=== PATIENT | female | born 1990 | race Caucasian/White ===

== ENCOUNTER → 2016-04-24 | Outpatient (CLI) | payer BC, OTHER ==
--- NOTE | 2016-04-24 18:31 | DI ---
DOPPLER ULTRASOUND OF THE LEFT UPPER EXTREMITY,04/24/2016 11:47 AM: Clinical History: Left arm pain. Previous Exam: None at this facility. Technique: 2D real-time imaging is supplemented with color Doppler ultrasound from the proximal forea rm to the subclavian vein. Compression maneuvers and augmentation with the "sniff" technique and the Valsalva maneuver are performed. The deep venous system from the proximal forearm to the subclavian vein is normal. The cephalic vein is also normal. Reading: Normal venous Doppler ultrasound of the left upper extremity.
== END ==
LOC: US 11:40
PROVIDERS: ATTEND Surgery
DX: M79.602 Pain in left arm (principal)
CPT/HCPCS: 93971

== ENCOUNTER → 2016-05-08 | Outpatient (CLI) | payer BC, OTHER ==
--- NOTE | 2016-05-08 15:31 | DI ---
XR SINUS PARANASAL CPT MIN 3VW,05/08/2016 2:11 PM: Clinical History: Sinusitis. Previous Exam: None at this facility. Findings: 4 views of the paranasal sinuses are obtained, and demonstrate normal paranasal sinuses. There is no filling defect and no bony erosion. There is no metallic foreign body. Impression: Normal paranasal sinuses.
== END ==
LOC: MOB RAD 14:13
PROVIDERS: ATTEND Physician Assistant
DX: J32.9 Chronic sinusitis, unspecified (principal)
CPT/HCPCS: 70220

== ENCOUNTER → 2016-05-13 | Outpatient (CLI) | payer BC, OTHER ==
[2016-05-13 08:42] LABS: BLOOD UREA NITROGEN 17 mg/dL (7-22); CALCIUM 9.9 mg/dL (8.7-10.7); CHLORIDE 103 meq/L (98-112); EST GLOMERULAR FILTRATION > 60 (>60 ml/min/1.73m(2)); GLUCOSE 86 mg/dL (78-110); POTASSIUM 4.6 meq/L (3.8-5.2); SODIUM 141 meq/L (135-145)
== END ==
LOC: LAB 07:41
PROVIDERS: ATTEND Internal Medicine Nephrology
DX: Z94.83 Pancreas transplant status (principal); Z94.0 Kidney transplant status; Z79.899 Other long term (current) drug therapy
CPT/HCPCS: 36415; 80048; 80197

== ENCOUNTER → 2016-05-31 | Outpatient (CLI) | payer BC, OTHER ==
[2016-05-31 07:51] LABS: BUN/CREATININE RATIO 14.54 (6-20); CALCIUM 9.3 mg/dL (8.7-10.7); CREATININE 1.1 mg/dL (0.50-1.20); POTASSIUM 4.1 meq/L (3.8-5.2)
== END ==
LOC: LAB 07:27
PROVIDERS: ATTEND Internal Medicine Nephrology
DX: Z94.0 Kidney transplant status (principal); Z94.83 Pancreas transplant status; Z79.899 Other long term (current) drug therapy
CPT/HCPCS: 36415; 80048; 80197

== ENCOUNTER 2016-06-27 10:16 | Emergency (ER) | payer BC, OTHER ==
[2016-06-27 10:49] VITALS: RESP 14
--- NOTE | 2016-06-27 11:05 | PDOC ---
Gen Adult / Medical Screen HPI - General Chief Complaint: General Medical Stated Complaint: DIZZY/NAUSEA/SHAKING Date Seen by Provider: 06/27/16 Time Seen by Provider: 11:00 Source: POSITIVE: Patient Exam Limitations: POSITIVE: No limitations Nurse's Notes Reviewed & Considered: Yes - History of Present Illness Initial Comments: This is a 26-year-old female who presents to the emergency department with a history of increasing dizziness, nausea, and shakiness which started last night , and has become worse today. She describes the dizziness as lightheadedness, not vertigo. She does have some nasal congestion, runny nose, sore throat, and right ear plugged feeling, all which started Friday. She has noted decreased fluid intake due to the sore throat. No documented fevers. She does feel cold, but this is relatively normal for her. She also notes some right upper quadrant pain which started yesterday - Patient Home Medications Home Medications: Home Medications Aspirin [Aspir-Low] 81 mg PO DAILY 10/25/13 Biotin [Meribin] 1 tab PO QD #30 cap 05/03/15 Diazepam 1 tab PO BID PRN #40 tab 05/03/15 Midodrine HCl 1 tab PO TID #90 tab 05/03/15 Multivitamin with Minerals [Hair, Skin and Nails] 1 tab PO QD #30 tab 05/03/15 Pantoprazole Sodium 1 tab PO QD #30 tab 05/03/15 Rosuvastatin Calcium [Crestor] 1 tab PO QD #30 tab 05/03/15 Prednisone 2 tab PO QD #60 tab 05/09/15 Ondansetron [Zofran Odt] 4 mg PO TID #10 tab 11/01/15 Promethazine HCl 1 supp RECTAL Q6H PRN #12 supp 11/02/15 Butalb/Acetaminophen/Caffeine [Fioricet 50-325-40 mg Tablet] 1 each PO Q6H PRN 11/04/15 Pantoprazole Sodium [Protonix] 40 mg PO BID #30 tablet. 11/04/15 Prochlorperazine Maleate [Compazine] 10 mg PO Q6H PRN #15 tablet 11/04/15 Docusate Sodium [Colace] 100 mg PO BID PRN #30 capsule 11/09/15 Isotretinoin [Zenatane] 40 mg PO BID cap 11/14/15 Valacyclovir HCl [Valacyclovir] 1,000 mg PO BID #14 tab 12/25/15 Trazodone HCl 1 tab PO QHS #30 tab 01/02/16 Metoclopramide HCl 2 tab PO BID #120 tab 04/17/16 Mycophenolate Sodium [Myfortic] 1 - 2 tab PO BID #120 tab 04/29/16 Tacrolimus Anhydrous [Tacrolimus] 1 - 4 cap PO BID #240 cap 04/29/16 Sertraline HCl 1 tab PO QD #30 tab 05/08/16 Sulfamethoxazole/Trimethoprim [Bactrim Ds Tablet] 1 tab PO BID #20 tab 05/27/16 - Patient Allergies Allergies/Adverse Reactions: Allergies Allergy/AdvReac Type Severity Reaction Status Date / Time Jpwllfi-Xkd-Ptl Reductase AdvReac Mild SWELLING Unverified 06/18/16 10:02 Inhibitor ibuprofen AdvReac HAS RENAL Unverified 06/18/16 10:02 FAILURE Past Medical History - heen HEENT History: Other (please comment) Additional HEENT History: wears glasses Cardiovascular History: Hypertension, CHF, Previous AR, DVTs, Hyperlipidemia, Other (please comment) Additional Cardiovasular History: HEART CATH X 2 WITH STENTS X2 Respiratory History: Denies History Gastrointestinal History: Other (please comment) Additional Gastrointestinal History: APPY Genitourinary History: Renal Failure Additional Genitourinary History: With in 2012; kidney transplant Endocrine History: Type 1 Diabetes Additional Endocrine History: hx of IDDM, no longer diabetic since transplant. 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 Psychiatric History: Anxiety Disorders, Depression Additional Psychiatric History: Takes Zoloft for anxiety History of Sexually Transmitted Diseases: No Cancer History: Denies History In Past Year Been Physically Harmed or Verbally Threatened: No History of MDRO: No History of Other Communicable Diseases: No Tobacco Use: Never Smoker Alcohol Use: None Substance Use Type: None Previous Surgical History: Yes Type / Date of Surgery: C SECTION X2, APPY, TUBAL LIG, cataractsHEART CATHS WITH STENTS X 2. kidney/pancreas transplant 03/14/2015 Anesthesia Reactions: No Malignant Hyperthermia: No Significant Family History: Heart disease, Diabetes, Hypertension Past Medical History Reviewed: Reviewed - No Changes ROS - Limitations ROS Limitations: No Limitations Constitution: DENIES: Chills, Fever Cardiovascular: DENIES: Chest Pain Respiratory: REPORTS: Cough Non Productive. DENIES: Hurts To Breathe, Shortness Of Breath Neurological: REPORTS: Headache, Dizziness Gastrointestinal: REPORTS: Abdominal Pain (Right upper quadrant). DENIES: Nausea, Vomitting Endocrine: REPORTS: Denies Symptoms Musculoskeletal: DENIES: Lower Extremity Swelling, Muscle Aches Genitourinary: DENIES: Dysuria, Flank Pain, Hematuria Eyes: DENIES: Vision Changes ENT: REPORTS: Hearing Loss, Congestion, Nasal Drainage, Sore Throat, Trouble Swallowing Skin: REPORTS: Denies Skin Symptoms Gen Adult/Medical Screen Exam - General Appearance General Appearance: POSITIVE: Alert, Cooperative, No Acute Distress - HEENT HEENT: POSITIVE: Other (Wears glasses). NEGATIVE: Scleral Icterus - Respiratory Respiratory: POSITIVE: No Respiratory Distress, Breath Sounds Normal. NEGATIVE : Wheezes, Rales, Rhonchi - Cardiovascular Cardiovascular: POSITIVE: Regular Rate & Rhythm, No Murmur, No Gallop - Abdomen Additional Abdominal Details: Abdomen soft, nondistended, she has mild to moderate right upper quadrant tenderness to palpation without rebound or guarding. She has active bowel sounds all 4 quadrants, no hepatosplenomegaly. No CVA tender to percussion. - Back Back: NEGATIVE: CVA Tenderness - Neurological / Psychological Mental Status: POSITIVE: Mood Normal, Affect Normal Orientation: POSITIVE: Oriented x 3 - Skin Skin: POSITIVE: Warm, Dry, No Rash Gen Adlt/Medical Scrn Progress - Results Reviewed by me Xrays/CTs/US Reviewed by me: Yes Discussed with Radiologist: Yes Lab Results Reviewed: Yes Lab Results:: Laboratory Results 06/27/16 Range/Units 11:30 WBC 7.60 (4.8-10.8) 10^3/uL RBC 5.47 H (4.20-5.40) 10^6/uL Hgb 15.0 (12.0-16.0) g/dL Hct 47.9 H (37.0-47.0) % MCV 87.6 (81-99) FL MCH 27.4 (27-31) PG MCHC 31.3 L (33-37) g/dL RDW Std Deviation 47.1 (39-50) fL RDW Coeff of Martha 14.8 H (11.5-14.5) % Plt Count 281 (140-350) 10*3/uL MPV 11.1 (7.4-12.2) FL Immature Gran % (Auto) 0.1 (0-5) % Neut % (Auto) 86.2 H (50-80) % Lymph % (Auto) 6.8 L (10-50) % [place] % (Auto) 5.7 (5-15) % Eos % (Auto) 0.9 (0-8) % Baso % (Auto) 0.3 (0-1) % Immature Gran # (Auto) 0.01 10*3/UL Neut # (Auto) 6.55 10*3/UL Lymph # (Auto) 0.52 10*3/uL [place] # (Auto) 0.43 (0.3-0.8) 10*3/UL Eos # (Auto) 0.07 10*3/UL Baso # (Auto) 0.02 10*3/UL WBC Morphology Comment Normal morphology (NORM) Plt Morphology Comment See comments (NORM) RBC Morph Comment See comments (NORM) Sodium 141 (135-145) meq/L Potassium 4.1 (3.8-5.2) meq/L Chloride 105 (98-112) meq/L Carbon Dioxide 24 (23-33) meq/L Anion Gap 12 (5-20) BUN 14 (7-22) mg/dL Creatinine 0.9 (0.50-1.20) mg/dL Estimated GFR > 60 (>60 ml/min/1.73m(2)) BUN/Creatinine Ratio 15.55 (6-20) Glucose 124 H (78-110) mg/dL Calculated Osmolality 293.0 H (267-292) mOsm/kg Calcium 9.4 (8.7-10.7) mg/dL Total Bilirubin 0.5 (0.3-1.2) mg/dL AST 42 H (8-39) IU/L ALT 49 (9-52) IU/L Alkaline Phosphatase 76 (38-126) IU/L Total Protein 7.7 (6.1-8.0) g/dL Albumin 4.2 (3.5-4.8) g/dL Globulin 3.5 (2.50-4.10) g/dL Albumin/Globulin Ratio 1.20 L (1.3-2.0) mg/g Lipase 274 (23-300) IU/L - Patient's Progress Pain Medication Addressed: POSITIVE: Yes Re-Examine Time: 12:40 (Feeling a little better.) Re-Examine Time:: 13:43 (Much better) Status: POSITIVE: Improved MDM / ED Course: Emergency room course: After initial evaluation, an IV was started, labs were drawn, IV fluids were given, and pain medications were given as well. After the lab results and ultrasound results reviewed, they're discussed with the patient. She was seen feeling somewhat better after the IV fluids, but still in some pain. She is given a Williams by mouth as well as second dose of fentanyl and is now feeling much better and is comfortable going home. She is follow-up with her primary care provider the next 2-3 days if the pain is not starting to improve. Return to the department if pain gets worse or symptoms change, or fever develops. - Consult Counseled: POSITIVE: Patient, RE: Lab Results, RE: Radiology Results, RE: Need for F/U Patient Care Time - Estimated PCT Patient Care Time (In Minutes): 30 Vital Signs - Recent Vital Signs Vital Signs: Vital Signs (Last 8 hours) Temp Pulse Resp BP Pulse Ox 06/27/16 10:39 97.5 F 90 14 103/69 96 Discharge Clinical Impression: Dizziness, Abdominal pain Discharge Disposition: Discharged to Home Condition: Good Patient Instructions Given at Discharge: Dizziness (ED), Acute Abdominal Pain ( ED)
[2016-06-27] MEDS ORDERED: NORMAL SALINE 10 ML SYRINGE FLUSH IVP PRN (11:08)
[2016-06-27] MEDS ORDERED: Sodium Chloride 0.9% 1,000 ML PRIMARY IV ONE (11:09)
[2016-06-27] MEDS ORDERED: ONDANSETRON 4 MG/2 ML VIAL IVP ONE (11:10)
[2016-06-27] MEDS ORDERED: fentaNYL Inj 100 MCG/2 ML VIAL IVP ONE (11:10)
[2016-06-27 11:33] LABS: BASOPHILS # (AUTO) 0.02 10*3/UL; BASOPHILS % (AUTO) 0.3 % (0-1); EOSINOPHILS # (AUTO) 0.07 10*3/UL; EOSINOPHILS % (AUTO) 0.9 % (0-8); HEMATOCRIT 47.9 % (37.0-47.0); LYMPHOCYTES # (AUTO) 0.52 10*3/uL; MEAN CORPUSCULAR HEMOGLOBIN 27.4 PG (27-31); MEAN CORPUSCULAR HGB CONC 31.3 g/dL (33-37); MEAN CORPUSCULAR VOLUME 87.6 FL (81-99); MEAN PLATELET VOLUME 11.1 FL (7.4-12.2); MONOCYTES # (AUTO) 0.43 10*3/UL (0.3-0.8); MONOCYTES % (AUTO) 5.7 % (5-15); NEUTROPHILS # (AUTO) 6.55 10*3/UL; NEUTROPHILS % (AUTO) 86.2 % (50-80); RED BLOOD COUNT 5.47 10^6/uL (4.20-5.40)
[2016-06-27 11:48] LABS: PLATELET MORPHOLOGY COMMENT SEE COMMENTS (NORM); WBC MORPHOLOGY COMMENT NORMAL MORPHOLOGY (NORM)
[2016-06-27 11:49] LABS: RBC MORPHOLOGY COMMENT SEE COMMENTS (NORM)
[2016-06-27 11:51] LABS: BLOOD UREA NITROGEN 14 mg/dL (7-22); BUN/CREATININE RATIO 15.55 (6-20); CALCIUM 9.4 mg/dL (8.7-10.7); EST GLOMERULAR FILTRATION > 60 (>60 ml/min/1.73m(2)); LIPASE 274 IU/L (23-300); SERUM ALBUMIN 4.2 g/dL (3.5-4.8)
--- NOTE | 2016-06-27 12:49 | DI ---
GALLBLADDER AND LIVER ULTRASOUND, 06/27/2016 11:11 AM: Clinical History: Right upper quadrant pain. Previous Exam: None at this facility. Technique: Scans are performed through the right upper quadrant in multiple projections. The patient was rolled from side to side and the gallbladder was balloted with the probe to facilitate visualizat ion of small gallstones. The gallbladder is well distended and has a normal wall thickness. There are no gallstones. The commo n bile duct measures 5 mm. Only a small portion of the neck of the pancreas is visualized and no obvi ous abnormality is seen. The liver, IVC, and aorta are normal. The right kidney is small but grossly normal. This patient has a renal transplant in the limited views of the transplant kidney in the righ t iliac fossa shows a normal perfusion without evidence of hydronephrosis. Readin. Normal gallbladder ultrasound. 2. The liver, aorta, and IVC are normal. 3. The [place] right kidney is small. The transplanted kidney in the right iliac fossa appears normal . 4. Only a small portion of the pancreas in the area of the neck could be visualized and that portion is normal.
[2016-06-27] MEDS ORDERED: HYDROcodone-APAP 5 MG -325 MG TABLET PO ONE (12:58)
[2016-06-27 16:46] VITALS: TEMP 97.2
== END 2016-06-27 13:56 | disposition home or self-care (01) ==
LOC: ER 10:16
DX: R42 Dizziness and giddiness (principal); R10.11 Right upper quadrant pain; R11.0 Nausea; J02.9 Acute pharyngitis, unspecified
CPT/HCPCS: 76705; 80053; 83690; 85025; 96361; 96374; 96375; 99283 ×2; J3010; J2405; J7030

== ENCOUNTER 2016-07-05 08:52 | Emergency (ER) | payer BC, OTHER ==
[2016-07-05] MEDS ORDERED: NORMAL SALINE 10 ML SYRINGE FLUSH IVP PRN (09:03)
[2016-07-05 09:09] VITALS: RESP 18; TEMP 96.2
[2016-07-05] MEDS: Sodium Chloride 0.9% 1,000 ML PRIMARY IV ONE (09:09)
--- NOTE | 2016-07-05 09:10 | PDOC ---
Syncope/Near-Syncope HPI - General Chief Complaint: Syncope / Near-Syncope Stated Complaint: dizzy, dehydration Date Seen by Provider: 07/05/16 Time Seen by Provider: 09:05 Source: POSITIVE: Patient Exam Limitations: POSITIVE: No limitations - History of Present Illness Initial Comments: Jennifer Lobato is a 26-year-old woman coming in today for an episode of dizziness. She has a history of kidney transplant and follows with the nephrology service out of [place]. About half an hour prior to presentation today, she had an episode of lightheadedness. She took her blood pressure at home, and her systolic blood pressure was in the 80s. She never actually passed out. Her symptoms have improved by this point. She called the nephrology service and they recommended that she come in to the emergency department for IV fluids and evaluation. She was little bit nauseated at the time, but this has largely resolved. Currently, she has no chest pain or shortness of breath no vision changes, no abdominal pain and no headache. She has no fevers, and no cough, and has been feeling otherwise well until this morning. She has an appointment with the nephrology service later this month. She took one dose of midodrine this morning before coming in. - Patient Home Medications Home Medications: Home Medications Aspirin [Aspir-Low] 81 mg PO DAILY 10/25/13 Biotin [Meribin] 1 tab PO QD #30 cap 05/03/15 Multivitamin with Minerals [Hair, Skin and Nails] 1 tab PO QD #30 tab 05/03/15 Rosuvastatin Calcium [Crestor] 1 tab PO QD #30 tab 05/03/15 Prednisone 2 tab PO QD #60 tab 05/09/15 Ondansetron [Zofran Odt] 4 mg PO TID #10 tab 11/01/15 Butalb/Acetaminophen/Caffeine [Fioricet 50-325-40 mg Tablet] 1 each PO Q6H PRN 11/04/15 Pantoprazole Sodium [Protonix] 40 mg PO BID #30 tablet. 11/04/15 Trazodone HCl 1 tab PO QHS #30 tab 01/02/16 Metoclopramide HCl 2 tab PO BID #120 tab 04/17/16 Mycophenolate Sodium [Myfortic] 1 - 2 tab PO BID #120 tab 04/29/16 Tacrolimus Anhydrous [Tacrolimus] 1 - 4 cap PO BID #240 cap 04/29/16 Sertraline HCl 1 tab PO QD #30 tab 05/08/16 Midodrine HCl 5 mg PO PRN PRN 07/05/16 Sodium Bicarbonate 1,300 mg PO BID 07/05/16 - Patient Allergies Allergies/Adverse Reactions: Allergies Allergy/AdvReac Type Severity Reaction Status Date / Time Lhjdlok-Dkd-Edl Reductase AdvReac Mild SWELLING Verified 07/05/16 08:58 Inhibitor ibuprofen AdvReac HAS RENAL Verified 07/05/16 08:58 FAILURE Past Medical History - heen HEENT History: Other (please comment) Additional HEENT History: wears glasses Cardiovascular History: Hypertension, CHF, Previous OR, DVTs, Hyperlipidemia, Other (please comment) Additional Cardiovasular History: HEART CATH X 2 WITH STENTS X2 Respiratory History: Denies History Gastrointestinal History: Other (please comment) Additional Gastrointestinal History: APPY Genitourinary History: Renal Failure Additional Genitourinary History: With in 2012; kidney transplant Endocrine History: Type 1 Diabetes Additional Endocrine History: hx of IDDM, no longer diabetic since transplant. 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 Psychiatric History: Anxiety Disorders, Depression Additional Psychiatric History: Takes Zoloft for anxiety History of Sexually Transmitted Diseases: No Cancer History: Denies History History of MDRO: No History of Other Communicable Diseases: No Alcohol Use: None Substance Use Type: None Previous Surgical History: Yes Type / Date of Surgery: C SECTION X2, APPY, TUBAL LIG, cataractsHEART CATHS WITH STENTS X 2. kidney/pancreas transplant 03/14/2015 Anesthesia Reactions: No Malignant Hyperthermia: No Significant Family History: Heart disease, Diabetes, Hypertension Past Medical History Reviewed: Reviewed - No Changes ROS - Limitations ROS Limitations: No Limitations Constitution: REPORTS: Denies Symptoms Cardiovascular: REPORTS: Denies Cardiac Symptoms Respiratory: REPORTS: Denies Resp Symptoms Neurological: REPORTS: Denies Neuro Symptoms Gastrointestinal: REPORTS: Denies GI Symptoms Endocrine: REPORTS: Denies Symptoms Musculoskeletal: REPORTS: Denies MS Symptoms Genitourinary: REPORTS: Denies Symptoms Eyes: REPORTS: Denies Symptoms ENT: REPORTS: Denies Symptoms Skin: REPORTS: Denies Skin Symptoms Lympathic: REPORTS: Denies Lympathic Symptoms Immunologic: POSITIVE: Denies Symptoms Psychiatric: POSITIVE: Denies Psych Symptoms Syncope / Near-Syncope Exam - General Appearance General Appearance: POSITIVE: Alert, Cooperative, No Acute Distress - HEENT HEENT: POSITIVE: Head Inspection Nml, Eyes Inspection Nml, Ears Inspection Nml, Nose Inspection Nml, PERRL, EOMI - Pupil Size Pupil Size: 2 mm: Bilateral, 3 mm: Bilateral - Neck / Back Neck/Back: POSITIVE: Supple - Respiratory Respiratory: POSITIVE: No Respiratoy Distress, Breath Sounds Normal - Cardiovascular Cardiovascular: POSITIVE: Regular Rate and Rhythm, Heart Sounds Normal, Equal Pulses Peripheral Pulses: Radial (R): 2+, Radial (L): 2+ - Abdomen Abdomen: Denies Tenderness: (All Quadrants), No Distention: (All Quadrants) - Skin Skin: POSITIVE: Intact, Warm - Extremities Extremity: Normal ROM: (All Extremities), Normal Inspection: (All Extremities) - Neuro / Psych Higher Functions: POSITIVE: Oriented to Person, Oriented to Place, Oriented to Time, Normal Speech, Normal Cognition, Appropriate Mood, Appropriate Affect Cranial Nerves: POSITIVE: Normal As Tested Cerebellar: POSITIVE: Normal As Tested Sensorimotor: POSITIVE: No Motor Deficits, No Sensory Deficits Syncope/Near-Syncope Progress - Results Reviewed by me Lab Results:: Laboratory Results 07/05/16 Range/Units 09:06 WBC 5.89 (4.8-10.8) 10^3/uL RBC 5.39 (4.20-5.40) 10^6/uL Hgb 14.6 (12.0-16.0) g/dL Hct 46.8 (37.0-47.0) % MCV 86.8 (81-99) FL MCH 27.1 (27-31) PG MCHC 31.2 L (33-37) g/dL RDW Std Deviation 45.1 (39-50) fL RDW Coeff of Martha 14.2 (11.5-14.5) % Plt Count 295 (140-350) 10*3/uL MPV 10.9 (7.4-12.2) FL Immature Gran % (Auto) 0.3 (0-5) % Neut % (Auto) 67.3 (50-80) % Lymph % (Auto) 20.2 (10-50) % [place] % (Auto) 10.0 (5-15) % Eos % (Auto) 1.9 (0-8) % Baso % (Auto) 0.3 (0-1) % Immature Gran # (Auto) 0.02 10*3/UL Neut # (Auto) 3.96 10*3/UL Lymph # (Auto) 1.19 10*3/uL [place] # (Auto) 0.59 (0.3-0.8) 10*3/UL Eos # (Auto) 0.11 10*3/UL Baso # (Auto) 0.02 10*3/UL WBC Morphology Comment Normal morphology (NORM) Plt Morphology Comment Normal morphology (NORM) RBC Morph Comment Normal morphology (NORM) Sodium 138 (135-145) meq/L Potassium 4.3 (3.8-5.2) meq/L Chloride 104 (98-112) meq/L Carbon Dioxide 24 (23-33) meq/L Anion Gap 10 (5-20) BUN 24 H (7-22) mg/dL Creatinine 1.0 (0.50-1.20) mg/dL Estimated GFR > 60 (>60 ml/min/1.73m(2)) BUN/Creatinine Ratio 24.00 H (6-20) Glucose 88 (78-110) mg/dL Calculated Osmolality 288.0 (267-292) mOsm/kg Calcium 9.5 (8.7-10.7) mg/dL Magnesium 1.6 (1.6-2.4) mg/dL Serum HCG, Qual Negative EKG Interpreted/Reviewed By Me:: Yes EKG Interpretation:: POSITIVE: Normal Sinus Rhythm, Normal Rate, Unchanged - Patient's Progress MDM / ED Course: Ananya is a very nice 26-year-old woman came in today with episode of acute dizziness and possible low blood pressure at home. We got orthostatic vital signs on her which were all normal. We observed her for a time here in the exam room and she did not develop any other concerning symptoms. We gave her 1 liter normal saline, and checked labs as above all of which were reassuring. I think she is stable to go home, I want her to keep her appointment with the nephrology clinic later this month. We give her return precautions and she verbalized understanding. Patient Care Time - Estimated PCT Patient Care Time (In Minutes): 25 Vital Signs - Recent Vital Signs Vital Signs: Vital Signs (Last 8 hours) Temp Pulse Pulse Pulse Pulse Resp BP 07/05/16 09:03 85 89 90 140/91 07/05/16 08:53 96.2 F L 85 18 BP BP Pulse Ox 07/05/16 09:03 125/84 120/88 07/05/16 08:53 95 - VS Reviewed Vital Signs Reviewed: Yes Discharge Clinical Impression: Near syncope Discharge Disposition: Discharged to Home Condition: Fair Patient Instructions Given at Discharge: Near Syncope (ED) Other: Keep your appointment with the nephrology clinic later this month.
--- NOTE | 2016-07-05 09:16 | EKG ---
[address] [place] [address] Measurements Intervals [place] Rate: 79 P: 17 NC: 162 QRS: -60 QRSD: 84 T: 3 QT: 378 QTc: 413 Interpretive Statements SINUS RHYTHM POSSIBLE LEFT ATRIAL ENLARGEMENT [-0.1mV P WAVE IN V1/V2] LOW QRS VOLTAGE IN PRECORDIAL LEADS [QRS DEFLECTION < 1.0 mV IN CHEST LEADS] POSSIBLE RIGHT VENTRICULAR CONDUCTION DELAY [RSR (QR) IN V1/V2] INFERIOR MYOCARDIAL INFARCTION [40+ ms Q WAVE AND/OR ST/T ABNORMALITY IN II/aVF], OF INDETERMINATE AGE ANTEROLATERAL MYOCARDIAL INFARCTION [40+ ms Q WAVE IN I/aVL/V3-V6], OF INDETERMINATE AGE Compared to ECG 07/16/2014 00:20:03 Low QRS voltage now present Myocardial infarct finding still present Electronically Signed On 07-05-16 09:59:01 MDT by Hugo Cisneros MD [email or web address]
[2016-07-05 09:18] LABS: BASOPHILS # (AUTO) 0.02 10*3/UL; BASOPHILS % (AUTO) 0.3 % (0-1); EOSINOPHILS # (AUTO) 0.11 10*3/UL; EOSINOPHILS % (AUTO) 1.9 % (0-8); HEMATOCRIT 46.8 % (37.0-47.0); HEMOGLOBIN 14.6 g/dL (12.0-16.0); LYMPHOCYTES # (AUTO) 1.19 10*3/uL; MEAN CORPUSCULAR HEMOGLOBIN 27.1 PG (27-31); MEAN CORPUSCULAR HGB CONC 31.2 g/dL (33-37); MEAN CORPUSCULAR VOLUME 86.8 FL (81-99); MEAN PLATELET VOLUME 10.9 FL (7.4-12.2); MONOCYTES # (AUTO) 0.59 10*3/UL (0.3-0.8); NEUTROPHILS # (AUTO) 3.96 10*3/UL; NEUTROPHILS % (AUTO) 67.3 % (50-80); RED BLOOD COUNT 5.39 10^6/uL (4.20-5.40)
[2016-07-05 09:27] LABS: BLOOD UREA NITROGEN 24 mg/dL (7-22); CALCIUM 9.5 mg/dL (8.7-10.7); EST GLOMERULAR FILTRATION > 60 (>60 ml/min/1.73m(2)); MAGNESIUM 1.6 mg/dL (1.6-2.4)
[2016-07-05 09:28] LABS: PLATELET MORPHOLOGY COMMENT NORMAL MORPHOLOGY (NORM); RBC MORPHOLOGY COMMENT NORMAL MORPHOLOGY (NORM); WBC MORPHOLOGY COMMENT NORMAL MORPHOLOGY (NORM)
== END 2016-07-05 10:15 | disposition home or self-care (01) ==
LOC: ER 08:52
DX: R55 Syncope and collapse (principal); R11.0 Nausea; R42 Dizziness and giddiness
CPT/HCPCS: 80048; 83735; 84443; 84703; 85025; 93005; 93010; 96360; 99283; J7030

== ENCOUNTER → 2016-07-15 | Outpatient (CLI) | payer BC, OTHER ==
[2016-07-15 08:31] LABS: HEMOGLOBIN 15.3 g/dL (12.0-16.0); MEAN CORPUSCULAR HEMOGLOBIN 26.7 PG (27-31); MEAN CORPUSCULAR HGB CONC 31.2 g/dL (33-37); MEAN CORPUSCULAR VOLUME 85.5 FL (81-99); MEAN PLATELET VOLUME 11.2 FL (7.4-12.2); RED BLOOD COUNT 5.73 10^6/uL (4.20-5.40)
[2016-07-15 09:45] LABS: BUN/CREATININE RATIO 15.45 (6-20); CALCIUM 9.7 mg/dL (8.7-10.7); PHOSPHORUS 3.9 mg/dl (2.4-4.3); SERUM ALBUMIN 4.4 g/dL (3.5-4.8)
== END ==
LOC: LAB 08:00
PROVIDERS: ATTEND Internal Medicine Nephrology
DX: Z94.0 Kidney transplant status (principal); Z94.83 Pancreas transplant status; Z79.899 Other long term (current) drug therapy
CPT/HCPCS: 36415; 80069; 80197; 85027

== ENCOUNTER → 2016-07-22 | Outpatient (CLI) | payer BC, OTHER ==
[2016-07-22 10:32] LABS: BASOPHILS # (AUTO) 0.05 10*3/UL; BASOPHILS % (AUTO) 0.6 % (0-1); EOSINOPHILS # (AUTO) 0.09 10*3/UL; EOSINOPHILS % (AUTO) 1.1 % (0-8); HEMATOCRIT 48.2 % (37.0-47.0); HEMOGLOBIN 15.4 g/dL (12.0-16.0); LYMPHOCYTES # (AUTO) 1.15 10*3/uL; MEAN CORPUSCULAR HEMOGLOBIN 27.1 PG (27-31); MEAN CORPUSCULAR VOLUME 84.9 FL (81-99); MONOCYTES # (AUTO) 0.83 10*3/UL (0.3-0.8); MONOCYTES % (AUTO) 10.3 % (5-15); NEUTROPHILS # (AUTO) 5.94 10*3/UL; NEUTROPHILS % (AUTO) 73.6 % (50-80); RED BLOOD COUNT 5.68 10^6/uL (4.20-5.40)
[2016-07-22 10:46] LABS: PLATELET MORPHOLOGY COMMENT NORMAL MORPHOLOGY (NORM); RBC MORPHOLOGY COMMENT NORMAL MORPHOLOGY (NORM); WBC MORPHOLOGY COMMENT NORMAL MORPHOLOGY (NORM)
[2016-07-22 10:50] LABS: BILIRUBIN,URINE NEGATIVE (NEG); COLOR,URINE YELLOW; GLUCOSE, URINE (UA) NEGATIVE (NEG); NITRATE,URINE NEGATIVE (NEG); OCCULT BLOOD,URINE LARGE (NEG); PH,URINE 5.5 (5.0-8.5); PROTEIN,URINE NEGATIVE (NEG); UROBILINOGEN,URINE 0.2 mg/dL (0.2)
[2016-07-22 10:56] LABS: CLARITY,URINE CLEAR (CLEAR)
[2016-07-22 10:57] LABS: BACTERIA,URINE RARE; RBC,URINE 0-1 /hpf; SQUAMOUS EPITHELIAL CELL,UR RARE; URINE SAMPLE TYPE CLEAN CATCH URINE; WBC,URINE 0-2
[2016-07-22 11:16] LABS: BUN/CREATININE RATIO 24.54 (6-20); CALCIUM 9.9 mg/dL (8.7-10.7); PHOSPHORUS 4.1 mg/dl (2.4-4.3); SERUM ALBUMIN 4.4 g/dL (3.5-4.8)
== END ==
LOC: LAB 10:14
PROVIDERS: ATTEND Internal Medicine Nephrology
DX: Z94.0 Kidney transplant status (principal)
CPT/HCPCS: 36415; 80069; 81001; 85025

== ENCOUNTER 2016-07-23 08:22 | Emergency (ER) | payer BC, OTHER ==
[2016-07-23] MEDS ORDERED: ONDANSETRON 4 MG/2 ML VIAL IVP ONE (08:56)
[2016-07-23] MEDS ORDERED: Sodium Chloride 0.9% 1,000 ML PRIMARY IV ONE (08:56)
[2016-07-23 09:11] LABS: BASOPHILS # (AUTO) 0.02 10*3/UL; BASOPHILS % (AUTO) 0.2 % (0-1); EOSINOPHILS # (AUTO) 0.06 10*3/UL; EOSINOPHILS % (AUTO) 0.6 % (0-8); HEMOGLOBIN 15.1 g/dL (12.0-16.0); LYMPHOCYTES # (AUTO) 0.94 10*3/uL; MEAN CORPUSCULAR HEMOGLOBIN 26.4 PG (27-31); MEAN CORPUSCULAR HGB CONC 31.5 g/dL (33-37); MEAN CORPUSCULAR VOLUME 84.1 FL (81-99); MEAN PLATELET VOLUME 11.7 FL (7.4-12.2); MONOCYTES # (AUTO) 1.06 10*3/UL (0.3-0.8); MONOCYTES % (AUTO) 10.3 % (5-15); NEUTROPHILS # (AUTO) 8.16 10*3/UL; NEUTROPHILS % (AUTO) 79.5 % (50-80); PLATELET MORPHOLOGY COMMENT NORMAL MORPHOLOGY (NORM); RBC MORPHOLOGY COMMENT NORMAL MORPHOLOGY (NORM); RED BLOOD COUNT 5.71 10^6/uL (4.20-5.40); WBC MORPHOLOGY COMMENT NORMAL MORPHOLOGY (NORM)
--- NOTE | 2016-07-23 09:12 | PDOC ---
Nausea/Vomiting/Diarrhea HPI - General Chief Complaint: Nausea / Vomiting / Diarrhea Stated Complaint: VOMITTING AND DIZZY Date Seen by Provider: 07/23/16 Time Seen by Provider: 09:00 Source: POSITIVE: Patient Exam Limitations: POSITIVE: No limitations Nurse's Notes Reviewed & Considered: Yes - History of Present Illness Initial Comments: Patient comes in today with a chief complaint of vomiting and diarrhea. 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 She developed nausea vomiting and diarrhea this morning. Symptoms began at approximately 0300. She states that yesterday she did not feel well with a general sense of ill health. Hasn't really she has a headache that starts at the base of her head radiates into the top of her head. She does have some shortness of breath that is worse when she lays down, denies any chest pain, no cough. She does have nausea vomiting and diarrhea. She's had 4 episodes of emesis. She has some vague left-sided back pain. Denies any hematuria or dysuria. She denies any fevers but does have chills and sweats. She denies any rashes. Body Location Affected: REPORTS: Head, Abdomen Timing: REPORTS: Abrupt Duration: <24 hours Severity: Moderate Quality: REPORTS: Cramping Abdominal Pain Onset Location: REPORTS: Generalized abdomen Abdominal Pain Radiation: REPORTS: No radiation Context: REPORTS: Sleep Modifying Factors: improves with: Nothing Associated Symptoms: REPORTS: Vomiting, Diarrhea Similar Symptoms Previously: No Recent Care Received: REPORTS: Denies Any Prior Injuries Related to Current Complaint?: No - Patient Home Medications Home Medications: Home Medications Aspirin [Aspir-Low] 81 mg PO DAILY 10/25/13 Biotin [Meribin] 1 tab PO QD #30 cap 05/03/15 Multivitamin with Minerals [Hair, Skin and Nails] 1 tab PO QD #30 tab 05/03/15 Rosuvastatin Calcium [Crestor] 1 tab PO QD #30 tab 05/03/15 Ondansetron [Zofran Odt] 4 mg PO TID #10 tab 11/01/15 Butalb/Acetaminophen/Caffeine [Fioricet 50-325-40 mg Tablet] 1 each PO Q6H PRN 11/04/15 Pantoprazole Sodium [Protonix] 40 mg PO BID #30 tablet 11/04/15 Mycophenolate Sodium [Myfortic] 1 - 2 tab PO BID #120 tab 04/29/16 Tacrolimus Anhydrous [Tacrolimus] 1 - 4 cap PO BID #240 cap 04/29/16 Sertraline HCl 1 tab PO QD #30 tab 05/08/16 Midodrine HCl 5 mg PO PRN PRN 07/05/16 Sodium Bicarbonate 1,300 mg PO BID 07/05/16 Prednisone 1 - 2 tab PO QD #60 tab 07/08/16 Trazodone HCl 1 tab PO QHS #30 tab 07/11/16 Metoclopramide HCl 2 tab PO BID #120 tab 07/16/16 - Patient Allergies Allergies/Adverse Reactions: Allergies Allergy/AdvReac Type Severity Reaction Status Date / Time [id number]-Ylk Reductase AdvReac Mild SWELLING Verified 07/23/16 08:51 Inhibitor ibuprofen AdvReac HAS RENAL Verified 07/23/16 08:51 FAILURE Past Medical History - heen HEENT History: Other (please comment) Additional HEENT History: wears glasses Cardiovascular History: Hypertension, CHF, Previous MT, DVTs, Hyperlipidemia, Other (please comment) Additional Cardiovasular History: HEART CATH X 2 WITH STENTS X2 Respiratory History: Denies History Gastrointestinal History: Other (please comment) Additional Gastrointestinal History: APPY Genitourinary History: Renal Failure Additional Genitourinary History: With in 2012; kidney transplant Endocrine History: Type 1 Diabetes Additional Endocrine History: hx of IDDM, no longer diabetic since transplant. 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 Psychiatric History: Anxiety Disorders, Depression Additional Psychiatric History: Takes Zoloft for anxiety History of Sexually Transmitted Diseases: No Cancer History: Denies History History of MDRO: No History of Other Communicable Diseases: No Alcohol Use: None Substance Use Type: None Previous Surgical History: Yes Type / Date of Surgery: C SECTION X2, APPY, TUBAL LIG, cataractsHEART CATHS WITH STENTS X 2. kidney/pancreas transplant 03/14/2015 Anesthesia Reactions: No Malignant Hyperthermia: No Significant Family History: Heart disease, Diabetes, Hypertension ROS - Limitations ROS Limitations: No Limitations Constitution: REPORTS: Chills, Diaphoresis Cardiovascular: REPORTS: Denies Cardiac Symptoms Respiratory: REPORTS: Shortness Of Breath Neurological: REPORTS: Headache Gastrointestinal: REPORTS: Nausea, Vomitting, Diarrhea Endocrine: REPORTS: Denies Symptoms Musculoskeletal: REPORTS: Denies MS Symptoms Genitourinary: REPORTS: Denies Symptoms Eyes: REPORTS: Denies Symptoms ENT: REPORTS: Denies Symptoms Skin: REPORTS: Denies Skin Symptoms Lympathic: REPORTS: Denies Lympathic Symptoms Immunologic: POSITIVE: Denies Symptoms Psychiatric: POSITIVE: Denies Psych Symptoms Nausea/Vomiting/Diarrhea Exam - General Appearance General Appearance: POSITIVE: Alert, Cooperative, No Acute Distress, No Evidence of Trauma - HEENT HEENT: POSITIVE: Head Inspection Nml, Eyes Inspection Nml, Ears Inspection Nml, Nose Inspection Nml, PERRL, EOMI - Neck Neck: POSITIVE: Supple, Normal Inspection, Non Tender - Respiratory Respiratory: POSITIVE: No Respiratory Distress, Breath Sounds Normal, Chest Non- Tender - Cardiovascular Cardiovascular: POSITIVE: Regular Rate and Rhythm, Heart Sounds Normal - Chest Chest: POSITIVE: Non Tender - Abdomen Abdomen: Soft: (All Quadrants), Normal Bowel Sounds: (All Quadrants), Denies Tenderness: (All Quadrants) - Back Back: POSITIVE: CVA Tenderness (L) - Skin Skin: POSITIVE: Intact, Normal For Race, Warm, Dry, No Rash - Extremities Extremity: Non-Tender: (All Extremities), Normal ROM: (All Extremities), Normal Inspection: (All Extremities), Pelvis Stable: (All Extremities) - Neurological / Psychological Neurological: POSITIVE: Affect Apporpriate, 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, 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, Motor Normal N/V/D Progress - Results Reviewed by me Xrays/CTs/US Reviewed by me: Yes Discussed with Radiologist: Yes Lab Results Reviewed: Yes Lab Results:: Laboratory Results 07/23/16 07/23/16 Range/Units 09:03 09:40 WBC 10.26 (4.8-10.8) 10^3/uL RBC 5.71 H (4.20-5.40) 10^6/uL Hgb 15.1 (12.0-16.0) g/dL Hct 48.0 H (37.0-47.0) % MCV 84.1 (81-99) FL MCH 26.4 L (27-31) PG MCHC 31.5 L (33-37) g/dL RDW Std Deviation 44.6 (39-50) fL RDW Coeff of Mratha 14.7 H (11.5-14.5) % Plt Count 303 (140-350) 10*3/uL MPV 11.7 (7.4-12.2) FL Immature Gran % (Auto) 0.2 (0-5) % Neut % (Auto) 79.5 (50-80) % Lymph % (Auto) 9.2 L (10-50) % [place] % (Auto) 10.3 (5-15) % Eos % (Auto) 0.6 (0-8) % Baso % (Auto) 0.2 (0-1) % Immature Gran # (Auto) 0.02 10*3/UL Neut # (Auto) 8.16 10*3/UL Lymph # (Auto) 0.94 10*3/uL [place] # (Auto) 1.06 H (0.3-0.8) 10*3/UL Eos # (Auto) 0.06 10*3/UL Baso # (Auto) 0.02 10*3/UL WBC Morphology Comment Normal morphology (NORM) Plt Morphology Comment Normal morphology (NORM) RBC Morph Comment Normal morphology (NORM) Sodium 138 (135-145) meq/L Potassium 4.0 (3.8-5.2) meq/L Chloride 107 (98-112) meq/L Carbon Dioxide 20 L (23-33) meq/L Anion Gap 11 (5-20) BUN 23 H (7-22) mg/dL Creatinine 1.0 (0.50-1.20) mg/dL Estimated GFR > 60 (>60 ml/min/1.73m(2)) BUN/Creatinine Ratio 23.00 H (6-20) Glucose 94 (78-110) mg/dL Calculated Osmolality 289.0 (267-292) mOsm/kg Lactic Acid < 0.5 L (0.70-2.10) MMOL/L Calcium 8.9 (8.7-10.7) mg/dL Magnesium 1.5 L (1.6-2.4) mg/dL Total Bilirubin 0.6 (0.3-1.2) mg/dL AST 23 (8-39) IU/L ALT 43 (9-52) IU/L Alkaline Phosphatase 54 (38-126) IU/L C-Reactive Protein < 0.5 (0.0-0.9) mg/dL Total Protein 7.3 (6.1-8.0) g/dL Albumin 3.9 (3.5-4.8) g/dL Globulin 3.4 (2.50-4.10) g/dL Albumin/Globulin Ratio 1.10 L (1.3-2.0) mg/g Amylase 82 (30-110) U/L Lipase 170 (23-300) IU/L - Patient's Progress Pain Medication Addressed: POSITIVE: Yes Re-examine Time: 11:59 Status: POSITIVE: Improved MDM / ED Course: Patient received an IV, blood was drawn and sent to lab for studies, radiographic studies were obtained. ER course: Patient received oral Tylenol, IV normal saline, magnesium sulfate, Benadryl, and IM Phenergan. This resulted in resolution of her vomiting, resolution of her headache. Findings: CBC shows a normal white count, comprehensive metabolic panel shows elevated BUN but normal creatinine. Chest x-rays a normal chest radiograph and abdominal series. Assessment: #1 headache resolved. #2 nausea vomiting and diarrhea improved. Plan: Discharge home, prescription for Phenergan, follow-up with primary care physician. She is to return to the emergency room if she begins to run fevers, has increased nausea vomiting or diarrhea, or other concerns. - Consult Counseled: POSITIVE: Patient, RE: Lab Results, RE: Radiology Results, RE: DX, RE : Need for F/U Patient Care Time - Estimated PCT Patient Care Time (In Minutes): 45 Vital Signs - Recent Vital Signs Vital Signs: Vital Signs (Last 8 hours) Temp Pulse Pulse Pulse Pulse Resp BP 07/23/16 08:30 84 97 103 H 105/75 07/23/16 08:22 96.5 F L 93 16 BP BP BP Pulse Ox 07/23/16 08:30 99/75 105/69 07/23/16 08:22 110/83 95 - VS Reviewed Vital Signs Reviewed: Yes Discharge Clinical Impression: Dehydration, Gastroenteritis, Nausea and vomiting, Migraine Discharge Disposition: Discharged to Home Condition: Fair Patient Instructions Given at Discharge: Dehydration (ED), Gastroenteritis (ED) , Acute Nausea and Vomiting (ED)
[2016-07-23 09:28] LABS: BLOOD UREA NITROGEN 23 mg/dL (7-22); C-REACTIVE PROTEIN < 0.5 mg/dL (0.0-0.9); CALCIUM 8.9 mg/dL (8.7-10.7); EST GLOMERULAR FILTRATION > 60 (>60 ml/min/1.73m(2)); MAGNESIUM 1.5 mg/dL (1.6-2.4); SERUM ALBUMIN 3.9 g/dL (3.5-4.8)
[2016-07-23] MEDS ORDERED: Magnesium Sulfate 2gm (Premix) 2 GM in Premix 1 BAG IV ONE (09:41)
[2016-07-23] MEDS ORDERED: PROMETHAZINE 25 MG/1 ML VIAL IM ONE (10:02)
[2016-07-23] MEDS ORDERED: diphenhydrAMINE 50 MG/1 ML VIAL IVP ONE (10:02)
[2016-07-23] MEDS ORDERED: ACETAMINOPHEN 325 MG TABLET PO ONE (10:02)
[2016-07-23 10:44] VITALS: RESP 16
[2016-07-23 11:00] LABS: LIPASE 170 IU/L (23-300)
--- NOTE | 2016-07-23 11:16 | DI ---
PA /LATERAL CHEST X-RAY, 07/23/2016 8:59 AM : Clinical History: Dizziness Previous Exam: None at this facility. There is no acute soft tissue or bony abnormality. Heart size is normal. Lungs are clear. Mediastinal structures are normal. There are no pulmonary nodules. IMPRESSION: Normal chest x-ray.
[2016-07-23 12:02] LABS: BILIRUBIN,URINE NEGATIVE (NEG); COLOR,URINE YELLOW; GLUCOSE, URINE (UA) NEGATIVE (NEG); NITRATE,URINE POSITIVE (NEG); OCCULT BLOOD,URINE LARGE (NEG); PH,URINE 5.5 (5.0-8.5); PROTEIN,URINE 30 mg/dl (NEG); UROBILINOGEN,URINE 0.2 EU/dL (0.2)
[2016-07-23 12:29] LABS: CLARITY,URINE SLIGHTLY CLOUDY (CLEAR)
[2016-07-23 12:31] LABS: URINE SAMPLE TYPE CLEAN CATCH URINE
[2016-07-23 12:32] LABS: BACTERIA,URINE FEW; RBC,URINE 20-25 /hpf; SQUAMOUS EPITHELIAL CELL,UR RARE; WBC,URINE 15-20
[2016-07-23 14:07] VITALS: TEMP 97.7
== END 2016-07-23 12:20 | disposition home or self-care (01) ==
LOC: ER 08:22
DX: K52.9 Noninfective gastroenteritis and colitis, unspecified (principal); G43.009 Migraine without aura, not intractable, without status migrainosus; E86.0 Dehydration; R19.7 Diarrhea, unspecified; M54.5 Low back pain; R51 Headache; R10.84 Generalized abdominal pain; R42 Dizziness and giddiness
CPT/HCPCS: 71020; 80053; 81001; 81003; 82150; 83605; 83690; 83735; 85025; 86140; 87040; 87077; 87088; 87186 ×2; 96365; 96372; 96375; 99283 ×2; J1200; J2405; J2550; J3475; J7030

== ENCOUNTER → 2016-08-02 | Outpatient (CLI) | payer BC, OTHER ==
[2016-08-02 12:36] LABS: BILIRUBIN,URINE NEGATIVE (NEG); COLOR,URINE YELLOW; GLUCOSE, URINE (UA) NEGATIVE (NEG); NITRATE,URINE NEGATIVE (NEG); OCCULT BLOOD,URINE NEGATIVE (NEG); PROTEIN,URINE NEGATIVE (NEG); UROBILINOGEN,URINE 0.2 mg/dL (0.2)
[2016-08-02 12:45] LABS: CLARITY,URINE CLEAR (CLEAR); URINE SAMPLE TYPE CLEAN CATCH URINE
[2016-08-02 12:46] LABS: BACTERIA,URINE RARE; SQUAMOUS EPITHELIAL CELL,UR RARE
== END ==
LOC: LAB 12:23
PROVIDERS: ATTEND Internal Medicine Nephrology
DX: N39.0 Urinary tract infection, site not specified (principal); Z94.0 Kidney transplant status
CPT/HCPCS: 81001

== ENCOUNTER 2016-08-14 02:18 | Emergency (ER) | payer BC, OTHER ==
[2016-08-14] MEDS ORDERED: Sodium Chloride 0.9% 1,000 ML PRIMARY IV ONE (02:21)
[2016-08-14] MEDS ORDERED: ONDANSETRON 4 MG/2 ML VIAL IVP ONE (02:21)
--- NOTE | 2016-08-14 02:25 | PDOC ---
Nausea/Vomiting/Diarrhea HPI - General Chief Complaint: Nausea / Vomiting / Diarrhea Stated Complaint: Vomiting, diarrhea, headache Date Seen by Provider: 08/14/16 Time Seen by Provider: 02:20 Source: POSITIVE: Patient Exam Limitations: POSITIVE: No limitations Nurse's Notes Reviewed & Considered: Yes - History of Present Illness Initial Comments: This very pleasant 26-year-old comes in today with a chief complaint of nausea vomiting and diarrhea. Patient with vomiting that's been ongoing today with inability to keep her antirejection medications down. She is a double transplant recipient Of kidney and pancreas. She also has a headache. She denies any cough, shortness of breath, chest pain. She does have epigastric and right flank pain. She has vomiting and diarrhea. She denies any fever chills but does have sweats. Body Location Affected: REPORTS: Head, Abdomen Timing: REPORTS: Constant Duration: <24 hours Severity: Severe Quality: REPORTS: Cramping, "Pain", Other (nausea and vomiting with abd pain/ cramping) Abdominal Pain Onset Location: REPORTS: RUQ, LUQ, Flank (right) Abdominal Pain Radiation: REPORTS: No radiation Context: REPORTS: None Modifying Factors: improves with: Nothing Associated Symptoms: REPORTS: Vomiting, Diarrhea, Abdominal Pain, Cramping Similar Symptoms Previously: No Recent Care Received: REPORTS: Treated by MD Any Prior Injuries Related to Current Complaint?: No - Patient Home Medications Home Medications: Home Medications Aspirin [Aspir-Low] 81 mg PO DAILY 10/25/13 Biotin [Meribin] 1 tab PO QD #30 cap 05/03/15 Multivitamin with Minerals [Hair, Skin and Nails] 1 tab PO QD #30 tab 05/03/15 Rosuvastatin Calcium [Crestor] 1 tab PO QD #30 tab 05/03/15 Ondansetron [Zofran Odt] 4 mg PO TID #10 tab 11/01/15 Butalb/Acetaminophen/Caffeine [Fioricet 50-325-40 mg Tablet] 1 each PO Q6H PRN 11/04/15 Pantoprazole Sodium [Protonix] 40 mg PO BID #30 tablet. 11/04/15 Mycophenolate Sodium [Myfortic] 1 - 2 tab PO BID #120 tab 04/29/16 Tacrolimus Anhydrous [Tacrolimus] 1 - 4 cap PO BID #240 cap 04/29/16 Sertraline HCl 1 tab PO QD #30 tab 05/08/16 Midodrine HCl 5 mg PO PRN PRN 07/05/16 Sodium Bicarbonate 1,300 mg PO BID 07/05/16 Prednisone 1 - 2 tab PO QD #60 tab 07/08/16 Trazodone HCl 1 tab PO QHS #30 tab 07/11/16 Metoclopramide HCl 2 tab PO BID #120 tab 07/16/16 - Patient Allergies Allergies/Adverse Reactions: Allergies Allergy/AdvReac Type Severity Reaction Status Date / Time [id number]-Iwp Reductase AdvReac Mild SWELLING Verified 08/14/16 02:26 Inhibitor ibuprofen AdvReac HAS RENAL Verified 08/14/16 02:26 FAILURE Past Medical History - heen HEENT History: Other (please comment) Additional HEENT History: wears glasses Cardiovascular History: Hypertension, CHF, Previous CA, DVTs, Hyperlipidemia, Other (please comment) Additional Cardiovasular History: HEART CATH X 2 WITH STENTS X2 Respiratory History: Denies History Gastrointestinal History: Other (please comment) Additional Gastrointestinal History: APPY Genitourinary History: Renal Failure Additional Genitourinary History: With in 2012; kidney transplant Endocrine History: Type 1 Diabetes Additional Endocrine History: hx of IDDM, no longer diabetic since transplant. 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 Psychiatric History: Anxiety Disorders, Depression Additional Psychiatric History: Takes Zoloft for anxiety History of Sexually Transmitted Diseases: No Cancer History: Denies History History of MDRO: No History of Other Communicable Diseases: No Alcohol Use: None Substance Use Type: None Previous Surgical History: Yes Type / Date of Surgery: C SECTION X2, APPY, TUBAL LIG, cataractsHEART CATHS WITH STENTS X 2. kidney/pancreas transplant 03/14/2015 Anesthesia Reactions: No Malignant Hyperthermia: No Significant Family History: Heart disease, Diabetes, Hypertension ROS - Limitations ROS Limitations: No Limitations Constitution: REPORTS: Diaphoresis Cardiovascular: REPORTS: Denies Cardiac Symptoms Respiratory: REPORTS: Denies Resp Symptoms Neurological: REPORTS: Denies Neuro Symptoms Gastrointestinal: REPORTS: Abdominal Pain, Nausea, Vomitting, Diarrhea Endocrine: REPORTS: Denies Symptoms Musculoskeletal: REPORTS: Denies MS Symptoms Genitourinary: REPORTS: Denies Symptoms Eyes: REPORTS: Denies Symptoms ENT: REPORTS: Denies Symptoms Skin: REPORTS: Denies Skin Symptoms Lympathic: REPORTS: Denies Lympathic Symptoms Immunologic: POSITIVE: Denies Symptoms Psychiatric: POSITIVE: Denies Psych Symptoms Nausea/Vomiting/Diarrhea Exam - General Appearance General Appearance: POSITIVE: Alert, Cooperative, No Evidence of Trauma, Moderate Distress - HEENT HEENT: POSITIVE: Head Inspection Nml, Eyes Inspection Nml, Ears Inspection Nml, Nose Inspection Nml, Oral/Dental Inspect. Nml, Pharynx Inspect. Nml, PERRL, EOMI - Neck Neck: POSITIVE: Supple, Normal Inspection, Non Tender - Respiratory Respiratory: POSITIVE: No Respiratory Distress, Breath Sounds Normal, Chest Non- Tender - Cardiovascular Cardiovascular: POSITIVE: Regular Rate and Rhythm, Heart Sounds Normal - Chest Chest: POSITIVE: Non Tender - Abdomen Abdomen: Soft: (All Quadrants), Normal Bowel Sounds: (All Quadrants), Tenderness Noted: (RUQ), (LUQ) - Back Back: POSITIVE: CVA Tenderness (R) - Skin Skin: POSITIVE: Intact, Normal For Race, Warm, Dry, No Rash - Extremities Extremity: Non-Tender: (All Extremities), Normal ROM: (All Extremities), Normal Inspection: (All Extremities), Pelvis Stable: (All Extremities) - Neurological / Psychological Neurological: POSITIVE: Affect Apporpriate, Oriented X3, Motor Normal, Sensation Normal N/V/D Progress - Results Reviewed by me Xrays/CTs/US Reviewed by me: Yes Discussed with Radiologist: Yes Lab Results Reviewed: Yes Lab Results:: Laboratory Results 08/14/16 08/14/16 Range/Units 02:30 03:55 WBC 7.27 (4.8-10.8) 10^3/uL RBC 5.68 H (4.20-5.40) 10^6/uL Hgb 14.8 (12.0-16.0) g/dL Hct 46.7 (37.0-47.0) % MCV 82.2 (81-99) FL MCH 26.1 L (27-31) PG MCHC 31.7 L (33-37) g/dL RDW Std Deviation 43.2 (39-50) fL RDW Coeff of Martha 14.5 (11.5-14.5) % Plt Count 328 (140-350) 10*3/uL MPV 11.0 (7.4-12.2) FL Immature Gran % (Auto) 0.3 (0-5) % Neut % (Auto) 77.6 (50-80) % Lymph % (Auto) 13.1 (10-50) % [place] % (Auto) 8.3 (5-15) % Eos % (Auto) 0.4 (0-8) % Baso % (Auto) 0.3 (0-1) % Immature Gran # (Auto) 0.02 10*3/UL Neut # (Auto) 5.65 10*3/UL Lymph # (Auto) 0.95 10*3/uL [place] # (Auto) 0.60 (0.3-0.8) 10*3/UL Eos # (Auto) 0.03 10*3/UL Baso # (Auto) 0.02 10*3/UL WBC Morphology Comment Normal morphology (NORM) Plt Morphology Comment Normal morphology (NORM) RBC Morph Comment Normal morphology (NORM) Sodium 140 (135-145) meq/L Potassium 3.9 (3.8-5.2) meq/L Chloride 105 (98-112) meq/L Carbon Dioxide 23 (23-33) meq/L Anion Gap 12 (5-20) BUN 17 (7-22) mg/dL Creatinine 0.9 (0.50-1.20) mg/dL Estimated GFR > 60 (>60 ml/min/1.73m(2)) BUN/Creatinine Ratio 18.88 (6-20) Glucose 107 (78-110) mg/dL Calculated Osmolality 291.0 (267-292) mOsm/kg Calcium 9.7 (8.7-10.7) mg/dL Magnesium 1.5 L (1.6-2.4) mg/dL Total Bilirubin 0.8 (0.3-1.2) mg/dL AST 25 (8-39) IU/L ALT 34 (9-52) IU/L Alkaline Phosphatase 61 (38-126) IU/L Total Protein 8.5 H (6.1-8.0) g/dL Albumin 4.6 (3.5-4.8) g/dL Globulin 3.9 (2.50-4.10) g/dL Albumin/Globulin Ratio 1.10 L (1.3-2.0) mg/g Ur Collection Type Clean catch urine Urine Color Yellow Urine Clarity Clear (CLEAR) Urine pH 7.0 (5.0-8.5) Ur Specific [place] 1.015 (1.005-1.030) Urine Protein Trace (NEG) mg/dl Urine Glucose (UA) Negative (NEG) mg/dL Urine Ketones 15 (NEG) Urine Occult Blood Negative (NEG) Urine Nitrate Negative (NEG) Urine Bilirubin Small (NEG) Urine Urobilinogen 1.0 (0.2) EU/dL Ur Leukocyte Esterase Negative (NEG) Ur Culture Indicated? Culture not set - Patient's Progress Pain Medication Addressed: POSITIVE: Yes Re-examine Time: 04:05 Status: POSITIVE: Improved MDM / ED Course: Patient was examined, an IV started, blood drawn and sent to the lab for studies , radiographic examinations obtained. She received a liter of normal saline, Zofran, Phenergan, IV Tylenol, and magnesium. Her headache improved and her nausea resolved. Findings: CBC is unremarkable, comprehensive metabolic panel is unremarkable, magnesium is low at 1.5, urinalysis is negative. KUB shows no acute intra- abdominal abnormalities. Assessment: Nausea, vomiting, and headache. Plan: Discharge home. Phenergan is prescribed, instructions to follow-up with primary care physician. - Consult Counseled: POSITIVE: Patient, RE: Lab Results, RE: Radiology Results, RE: DX, RE : Need for F/U Patient Care Time - Estimated PCT Patient Care Time (In Minutes): 20 Vital Signs - Recent Vital Signs Vital Signs: Vital Signs (Last 8 hours) Temp Pulse Resp BP Pulse Ox 08/14/16 02:20 96.9 F 86 20 126/94 96 - VS Reviewed Vital Signs Reviewed: Yes Discharge Clinical Impression: Nausea & vomiting Discharge Disposition: Discharged to Home Condition: Stable Patient Instructions Given at Discharge: Acute Nausea and Vomiting (ED)
[2016-08-14] MEDS: Acetaminophen 1000mg Inj 1,000 MG in Premix 1 BAG IV ONE ×2 (02:43→03:07)
[2016-08-14 02:46] LABS: BASOPHILS # (AUTO) 0.02 10*3/UL; BASOPHILS % (AUTO) 0.3 % (0-1); EOSINOPHILS # (AUTO) 0.03 10*3/UL; EOSINOPHILS % (AUTO) 0.4 % (0-8); HEMATOCRIT 46.7 % (37.0-47.0); HEMOGLOBIN 14.8 g/dL (12.0-16.0); LYMPHOCYTES # (AUTO) 0.95 10*3/uL; MEAN CORPUSCULAR HEMOGLOBIN 26.1 PG (27-31); MEAN CORPUSCULAR HGB CONC 31.7 g/dL (33-37); MEAN CORPUSCULAR VOLUME 82.2 FL (81-99); MONOCYTES % (AUTO) 8.3 % (5-15); NEUTROPHILS # (AUTO) 5.65 10*3/UL; NEUTROPHILS % (AUTO) 77.6 % (50-80); RED BLOOD COUNT 5.68 10^6/uL (4.20-5.40)
[2016-08-14 02:50] LABS: PLATELET MORPHOLOGY COMMENT NORMAL MORPHOLOGY (NORM); RBC MORPHOLOGY COMMENT NORMAL MORPHOLOGY (NORM); WBC MORPHOLOGY COMMENT NORMAL MORPHOLOGY (NORM)
[2016-08-14 02:54] LABS: BLOOD UREA NITROGEN 17 mg/dL (7-22); BUN/CREATININE RATIO 18.88 (6-20); CALCIUM 9.7 mg/dL (8.7-10.7); EST GLOMERULAR FILTRATION > 60 (>60 ml/min/1.73m(2)); MAGNESIUM 1.5 mg/dL (1.6-2.4); SERUM ALBUMIN 4.6 g/dL (3.5-4.8)
[2016-08-14] MEDS ORDERED: PROMETHAZINE 25 MG/1 ML VIAL IM ONE (02:54)
[2016-08-14 03:13] VITALS: RESP 20; TEMP 96.9
--- NOTE | 2016-08-14 03:24 | DI ---
HISTORY: Right flank pain with nausea and vomiting. FINDINGS/IMPRESSION: Flat and upright views of the abdomen reveal stool and gas in the distribution of the colon to the distal rectum. There are not dilated loops of bowel or air-fluid levels. No free intraperitoneal air is detected. There is radiopaque material projecting over the right mid abdomen a nd right lower quadrant. Differential considerations include surgical material, as well as an enteric , vascular, and urologic etiologies. Clinical and laboratory correlation is recommended as to the nec essity of advanced cross-sectional imaging. The imaged lung bases are clear with no effusion, consolidation, or pneumothorax. The cardiomediastin al silhouette is within normal limits. There is transitional lumbosacral anatomy. Osseous structures are otherwise normal for age.
[2016-08-14] MEDS ORDERED: Magnesium Sulfate 2gm (Premix) 2 GM in Premix 1 BAG IV ONE (03:48)
[2016-08-14 04:00] LABS: BILIRUBIN,URINE SMALL (NEG); CLARITY,URINE CLEAR (CLEAR); COLOR,URINE YELLOW; GLUCOSE, URINE (UA) NEGATIVE (NEG); NITRATE,URINE NEGATIVE (NEG); OCCULT BLOOD,URINE NEGATIVE (NEG); PROTEIN,URINE TRACE mg/dl (NEG)
[2016-08-14 04:02] LABS: URINE SAMPLE TYPE CLEAN CATCH URINE
== END 2016-08-14 04:17 | disposition home or self-care (01) ==
LOC: ER 02:18
DX: R11.2 Nausea with vomiting, unspecified (principal); R19.7 Diarrhea, unspecified; R51 Headache; R10.13 Epigastric pain
CPT/HCPCS: 74020; 80053; 81003; 83735; 85025; 96361; 96365; 96375; 99283 ×2; J0131; J2405; J2550; J3475; J7030

== ENCOUNTER → 2016-08-20 | Outpatient (CLI) | payer BC, OTHER ==
[2016-08-20 08:37] LABS: HEMATOCRIT 46.4 % (37.0-47.0); HEMOGLOBIN 14.4 g/dL (12.0-16.0); MEAN CORPUSCULAR HEMOGLOBIN 26.3 PG (27-31); MEAN CORPUSCULAR VOLUME 84.8 FL (81-99); MEAN PLATELET VOLUME 11.1 FL (7.4-12.2); RED BLOOD COUNT 5.47 10^6/uL (4.20-5.40)
[2016-08-20 09:04] LABS: BUN/CREATININE RATIO 15.45 (6-20); CALCIUM 9.7 mg/dL (8.7-10.7); SERUM ALBUMIN 4.3 g/dL (3.5-4.8)
== END ==
LOC: LAB 07:51
PROVIDERS: ATTEND Internal Medicine Nephrology
DX: Z94.0 Kidney transplant status (principal); Z94.83 Pancreas transplant status; Z79.899 Other long term (current) drug therapy
CPT/HCPCS: 36415; 80069; 80197; 85027

== ENCOUNTER 2016-09-05 18:21 | Emergency (ER) | payer BC, OTHER ==
[2016-09-05] MEDS ORDERED: Sodium Chloride 0.9% 1,000 ML PRIMARY IV ONE (19:00)
--- NOTE | 2016-09-05 19:18 | EKG ---
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
[2016-09-05 19:21] LABS: HEMATOCRIT 44.4 % (37.0-47.0); HEMOGLOBIN 13.9 g/dL (12.0-16.0); MEAN CORPUSCULAR HEMOGLOBIN 26.3 PG (27-31); MEAN CORPUSCULAR HGB CONC 31.3 g/dL (33-37); MEAN CORPUSCULAR VOLUME 84.1 FL (81-99); MEAN PLATELET VOLUME 10.7 FL (7.4-12.2); RED BLOOD COUNT 5.28 10^6/uL (4.20-5.40)
[2016-09-05 19:24] VITALS: RESP 18; TEMP 97.6
[2016-09-05 19:24] LABS: BUN/CREATININE RATIO 16.92 (6-20); CALCIUM 9.2 mg/dL (8.7-10.7); SERUM ALBUMIN 4.3 g/dL (3.5-4.8)
--- NOTE | 2016-09-06 05:59 | PDOC ---
General Adult HPI - General Chief Complaint: General Medical Stated Complaint: LOW BP TODAY Date Seen by Provider: 09/05/16 Time Seen by Provider: 18:35 Source: POSITIVE: Patient Exam Limitations: POSITIVE: No limitations Nurse's Notes Reviewed & Considered: Yes - History of Present Illness Initial Comment: The patient is a 26-year-old female. She states that she has a history of hypotension for which she takes mididrine. She states that today she believes her "blood pressure is low". She has a sphygmomanometer at home and she takes her blood pressure daily. She states she has had readings as low as 70/40. She also states that she has had "dizziness". Patient has a history of type I diabetes mellitus with subsequent renal failure. 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 She states she has had hypotension since this procedure. She also had a myocardial infarction before this procedure. She called her bisque ware dipper, Dr. Sanders, with regard to her concerns about her blood pressure and she states that her bisque ware dipper advised her to "come to the emergency room to get fluids and blood tests". She denies any syncope. No GI or symptoms. No head, chest or abdominal pain. No rashes or skin changes. Have you received a tetanus shot in the past 10 years?: Yes Body Location Affected: REPORTS: Other (As above) Timing: REPORTS: Abrupt Duration: <24 hours Severity: Moderate Quality: REPORTS: Other (Patient denies chest pain or any other pain.) Context: REPORTS: None Modifying Factors: improves with: Nothing Similar Symptoms Previously: Yes Recent Care Received: REPORTS: Other (As above) Any Prior Injuries Related to Current Complaint?: No - Patient Home Medications Home Medications: Home Medications Aspirin [Aspir-Low] 81 mg PO DAILY 10/25/13 Biotin [Meribin] 1 tab PO QD #30 cap 05/03/15 Multivitamin with Minerals [Hair, Skin and Nails] 1 tab PO QD #30 tab 05/03/15 Rosuvastatin Calcium [Crestor] 1 tab PO QD #30 tab 05/03/15 Ondansetron [Zofran Odt] 4 mg PO TID #10 tab 11/01/15 Butalb/Acetaminophen/Caffeine [Fioricet 50-325-40 mg Tablet] 1 each PO Q6H PRN 11/04/15 Pantoprazole Sodium [Protonix] 40 mg PO BID #30 tablet. 11/04/15 Mycophenolate Sodium [Myfortic] 1 - 2 tab PO BID #120 tab 04/29/16 Tacrolimus Anhydrous [Tacrolimus] 1 - 4 cap PO BID #240 cap 04/29/16 Sertraline HCl 1 tab PO QD #30 tab 05/08/16 Midodrine HCl 5 mg PO PRN PRN 07/05/16 Sodium Bicarbonate 1,300 mg PO BID 07/05/16 Prednisone 1 - 2 tab PO QD #60 tab 07/08/16 Trazodone HCl 1 tab PO QHS #30 tab 07/11/16 Metoclopramide HCl 2 tab PO BID #120 tab 07/16/16 - Patient Allergies Allergies/Adverse Reactions: Allergies Allergy/AdvReac Type Severity Reaction Status Date / Time Jbjfoye-Fno-Jkg Reductase AdvReac Mild SWELLING Verified 09/05/16 18:33 Inhibitor ibuprofen AdvReac HAS RENAL Verified 09/05/16 18:33 FAILURE Past Medical History - heen HEENT History: Other (please comment) Additional HEENT History: wears glasses Cardiovascular History: Hypertension, CHF, Previous [place], DVTs, Hyperlipidemia, Other (please comment) Additional Cardiovasular History: HEART CATH X 2 WITH STENTS X2 Respiratory History: Denies History Gastrointestinal History: Other (please comment) Additional Gastrointestinal History: APPY Genitourinary History: Renal Failure Additional Genitourinary History: With in 2012; kidney transplant Endocrine History: Type 1 Diabetes Additional Endocrine History: hx of IDDM, no longer diabetic since transplant. 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 Psychiatric History: Anxiety Disorders, Depression Additional Psychiatric History: Takes Zoloft for anxiety History of Sexually Transmitted Diseases: No Female Reproductive History: Denies History Obstetrical History: Delivery Cancer History: Denies History In Past Year Been Physically Harmed or Verbally Threatened: No History of MDRO: No History of Other Communicable Diseases: No Tobacco Use: Never Smoker Alcohol Use: None Substance Use Type: None Previous Surgical History: Yes Type / Date of Surgery: C SECTION X2, APPY, TUBAL LIG, cataracts, HEART CATHS WITH STENTS X 2. kidney/pancreas transplant 03/14/2015 Anesthesia Reactions: No Malignant Hyperthermia: No Significant Family History: Heart disease, Diabetes, Hypertension Past Medical History Reviewed: Reviewed - No Changes ROS - Limitations ROS Limitations: No Limitations Constitution: REPORTS: Denies Symptoms Cardiovascular: REPORTS: Denies Cardiac Symptoms Respiratory: REPORTS: Denies Resp Symptoms Neurological: REPORTS: Denies Neuro Symptoms Gastrointestinal: REPORTS: Denies GI Symptoms Endocrine: REPORTS: Denies Symptoms Musculoskeletal: REPORTS: Denies MS Symptoms Genitourinary: REPORTS: Denies Symptoms Eyes: REPORTS: Denies Symptoms ENT: REPORTS: Denies Symptoms Skin: REPORTS: Denies Skin Symptoms Lympathic: REPORTS: Denies Lympathic Symptoms Immunologic: POSITIVE: Denies Symptoms Psychiatric: POSITIVE: Denies Psych Symptoms General Adult Exam - General Appearance General Appearance: POSITIVE: Alert, Cooperative, No Acute Distress, No Evidence of Trauma - HEENT HEENT: POSITIVE: Head Inspection Nml, Eyes Inspection Nml, Ears Inspection Nml, Nose Inspection Nml, Oral/Dental Inspect. Nml, Pharynx Inspect. Nml, PERRL, EOMI - Pupils Pupil Size: 3 mm: Left (PERRLA) - Neck Neck: POSITIVE: Normal Inspection, Thyroid Normal - Respiratory Respiratory: POSITIVE: No Respiratory Distress, Breath Sounds Normal, Chest Non- Tender - Cardiovascular Cardiovascular: POSITIVE: Regular Rate & Rhythm, No Murmur, No Gallop, PMI Normal Peripheral Pulses: Radial (R): 2+, Radial (L): 2+ - Abdomen Abdomen: Soft: (All Quadrants), Normal Bowel Sounds: (All Quadrants), Denies Tenderness: (All Quadrants), No Splenomegaly: (All Quadrants), No Hepatomegaly: (All Quadrants), No Guarding: (All Quadrants), No Rebound: (All Quadrants), No Palpable Pulse: (All Quadrants), No Palpabale Mass: (All Quadrants), No Distention: (All Quadrants), No Rigidity: (All Quadrants) - Back Back: POSITIVE: Normal Inspection - Skin Skin: POSITIVE: Normal Color, Warm, Dry, No Rash - Extremities Extremity: Non-Tender: (All Extremities), Normal ROM: (All Extremities), Normal Inspection: (All Extremities) - Neurological / Psychological Neurological: 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, 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 As Tested, Motor Normal, Sensation Normal, 5, 6 General Adult Progress - Results Reviewed by me Lab Results Reviewed: Yes Lab Results:: Laboratory Results 09/05/16 Range/Units 19:05 WBC 6.71 (4.8-10.8) 10^3/uL RBC 5.28 (4.20-5.40) 10^6/uL Hgb 13.9 (12.0-16.0) g/dL Hct 44.4 (37.0-47.0) % MCV 84.1 (81-99) FL MCH 26.3 L (27-31) PG MCHC 31.3 L (33-37) g/dL RDW Std Deviation 47.5 (39-50) fL RDW Coeff of Martha 15.6 H (11.5-14.5) % Plt Count 352 H (140-350) 10*3/uL MPV 10.7 (7.4-12.2) FL Sodium 142 (135-145) meq/L Potassium 4.0 (3.8-5.2) meq/L Chloride 106 (98-112) meq/L Carbon Dioxide 22 L (23-33) meq/L Anion Gap 14 (5-20) BUN 22 (7-22) mg/dL Creatinine 1.3 H (0.50-1.20) mg/dL Estimated GFR 49 (>60 ml/min/1.73m(2)) BUN/Creatinine Ratio 16.92 (6-20) Glucose 122 H (78-110) mg/dL Calculated Osmolality 297.0 H (267-292) mOsm/kg Calcium 9.2 (8.7-10.7) mg/dL Phosphorus 3.2 (2.4-4.3) mg/dl Total Bilirubin 0.4 (0.3-1.2) mg/dL AST 37 (8-39) IU/L ALT 35 (9-52) IU/L Alkaline Phosphatase 58 (38-126) IU/L Total Protein 7.8 (6.1-8.0) g/dL Albumin 4.3 (3.5-4.8) g/dL Globulin 3.5 (2.50-4.10) g/dL Albumin/Globulin Ratio 1.20 L (1.3-2.0) mg/g EKG Interpreted/Reviewed By Me:: Yes (Q waves in lateral leads compatible with old myocardial infarction) EKG Interpretation:: POSITIVE: Normal Sinus Rhythm, Normal Rate, Normal Intervals, Normal ST/T. NEGATIVE: Normal Gomer, Normal QRS (Q waves in lateral leads) - Patient's Progress Pain Medication Addressed: POSITIVE: Not Applicable Re-Examine Time: 20:00 Re-Examine Comment: Patient's blood pressure remained around 120-130/75-85. She remained asymptomatic. Patient's bisque ware dipper phoned in order for tacrolimus, which will be sent to his office. Status: POSITIVE: Unchanged, Re-Examined (Patient remained asymptomatic and normotensive throughout her stay in the emergency room.) Antibiotics Given: No - Consult Counseled: POSITIVE: Patient, RE: Lab Results, RE: DX, RE: Need for F/U Patient Care Time - Estimated PCT Patient Care Time (In Minutes): 35 Vital Signs - VS Reviewed Vital Signs Reviewed: Yes Discharge Clinical Impression: Hypotension Discharge Disposition: Discharged to Home Condition: Stable Patient Instructions Given at Discharge: Hypotension (ED) Additional Instructions: Continue present medication. Follow-up with your bisque ware dipper as he has ordered. Return here anytime if condition worsens in any way whatsoever. Follow Up With: NONE,NONE [Primary Care Provider] - (Instructions as above. Follow-up with your bisque ware dipper and primary care provider. Return here anytime as necessary.)
[2016-09-10 14:31] LABS: ALDOSTERONE <4.0 ng/dL (<=21)
== END 2016-09-05 20:02 | disposition home or self-care (01) ==
LOC: ER 18:21
DX: I95.9 Hypotension, unspecified (principal); E10.22 Type 1 diabetes mellitus with diabetic chronic kidney disease; R42 Dizziness and giddiness; Z79.4 Long term (current) use of insulin
CPT/HCPCS: 80053; 82088; 84100; 84244; 85027; 93005; 93010; 96360; 99283; J7030

== ENCOUNTER → 2016-09-09 | Outpatient (CLI) | payer BC, OTHER ==
[2016-09-09 08:07] LABS: HEMATOCRIT 48.8 % (37.0-47.0); HEMOGLOBIN 14.9 g/dL (12.0-16.0); MEAN CORPUSCULAR HEMOGLOBIN 25.4 PG (27-31); MEAN CORPUSCULAR HGB CONC 30.5 g/dL (33-37); MEAN CORPUSCULAR VOLUME 83.3 FL (81-99); MEAN PLATELET VOLUME 10.7 FL (7.4-12.2); RED BLOOD COUNT 5.86 10^6/uL (4.20-5.40)
[2016-09-09 08:16] LABS: CALCIUM 9.4 mg/dL (8.7-10.7); PHOSPHORUS 4.1 mg/dl (2.4-4.3); SERUM ALBUMIN 4.5 g/dL (3.5-4.8)
== END ==
LOC: LAB 07:44
PROVIDERS: ATTEND Internal Medicine Nephrology
DX: Z94.0 Kidney transplant status (principal)
CPT/HCPCS: 36415; 80069; 80197; 85027

== ENCOUNTER → 2016-09-19 | Outpatient (CLI) | payer BC, OTHER ==
[2016-09-19 11:16] LABS: HEMATOCRIT 46.5 % (37.0-47.0); HEMOGLOBIN 14.5 g/dL (12.0-16.0); MEAN CORPUSCULAR HGB CONC 31.2 g/dL (33-37); MEAN CORPUSCULAR VOLUME 83.3 FL (81-99); MEAN PLATELET VOLUME 11.1 FL (7.4-12.2); RED BLOOD COUNT 5.58 10^6/uL (4.20-5.40)
[2016-09-19 13:00] LABS: BLOOD UREA NITROGEN 15 mg/dL (7-22); CALCIUM 9.5 mg/dL (8.7-10.7); EST GLOMERULAR FILTRATION > 60 (>60 ml/min/1.73m(2)); PHOSPHORUS 3.9 mg/dl (2.4-4.3); SERUM ALBUMIN 4.2 g/dL (3.5-4.8)
== END ==
LOC: LAB 11:04
PROVIDERS: ATTEND Internal Medicine Nephrology
DX: Z94.0 Kidney transplant status (principal); Z94.83 Pancreas transplant status; Z79.899 Other long term (current) drug therapy
CPT/HCPCS: 36415; 80069; 85027

== ENCOUNTER 2016-10-16 10:43 | Emergency (ER) | payer BC, OTHER ==
--- NOTE | 2016-10-16 12:24 | PDOC ---
Lower Extremity Injury HPI - General Chief Complaint: Lower Extremity Problem/Injury Stated Complaint: Left leg pain Date Seen by Provider: 10/16/16 Time Seen by Provider: 11:30 - History of Present Illness Initial Comments: Patient's very nice 26-year-old who was on a swing and ended up taking a fall from the swelling. She had instant pain in her left leg but has essentially been trying to watch and see how it goes. She did have increasing difficulty and pain with ambulation since the accident which happened yesterday. She has pain into her tibia some and in the calf and in the left lateral lower leg. She denies any swelling or discoloration of this area at all. She notices it most when she is moving or twisting while walking. She is able to bear weight except for there is some baseline pain and increased pain when she tries to push off of that leg. Have you received a tetanus shot in the past 10 years?: Yes - Patient Home Medications Home Medications: Home Medications Aspirin [Aspir-Low] 81 mg PO DAILY 10/25/13 Biotin [Meribin] 1 tab PO QD #30 cap 05/03/15 Multivitamin with Minerals [Hair, Skin and Nails] 1 tab PO QD #30 tab 05/03/15 Rosuvastatin Calcium [Crestor] 1 tab PO QD #30 tab 05/03/15 Ondansetron [Zofran Odt] 4 mg PO TID #10 tab 11/01/15 Butalb/Acetaminophen/Caffeine [Fioricet 50-325-40 mg Tablet] 1 each PO Q6H PRN 11/04/15 Mycophenolate Sodium [Myfortic] 1 - 2 tab PO BID #120 tab 04/29/16 Tacrolimus Anhydrous [Tacrolimus] 1 - 4 cap PO BID #240 cap 04/29/16 Midodrine HCl 5 mg PO PRN PRN 07/05/16 Sodium Bicarbonate 1,300 mg PO BID 07/05/16 Prednisone 1 - 2 tab PO QD #60 tab 07/08/16 Trazodone HCl 1 tab PO QHS #30 tab 07/11/16 Metoclopramide HCl 2 tab PO BID #120 tab 09/25/16 Sertraline HCl 1 tab PO QD #30 tab 10/09/16 Pantoprazole Sodium [Protonix] 1 tab PO QD #90 tab 10/14/16 - Patient Allergies Allergies/Adverse Reactions: Allergies Allergy/AdvReac Type Severity Reaction Status Date / Time [id number]-[id number]-Vyi Reductase AdvReac Mild SWELLING Verified 09/05/16 18:33 Inhibitor ibuprofen AdvReac HAS RENAL Verified 09/05/16 18:33 FAILURE Past Medical History - heen HEENT History: Other (please comment) Additional HEENT History: wears glasses Cardiovascular History: Hypertension, CHF, Previous [place], DVTs, Hyperlipidemia, Other (please comment) Additional Cardiovasular History: HEART CATH X 2 WITH STENTS X2 Respiratory History: Denies History Gastrointestinal History: Other (please comment) Additional Gastrointestinal History: APPY Genitourinary History: Renal Failure Additional Genitourinary History: With in 2012; kidney transplant Endocrine History: Type 1 Diabetes Additional Endocrine History: hx of IDDM, no longer diabetic since transplant. 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 Psychiatric History: Anxiety Disorders, Depression Additional Psychiatric History: Takes Zoloft for anxiety History of Sexually Transmitted Diseases: No Cancer History: Denies History History of MDRO: No History of Other Communicable Diseases: No Alcohol Use: None Substance Use Type: None Previous Surgical History: Yes Type / Date of Surgery: C SECTION X2, APPY, TUBAL LIG, cataracts, HEART CATHS WITH STENTS X 2. kidney/pancreas transplant 03/14/2015 Anesthesia Reactions: No Malignant Hyperthermia: No Significant Family History: Heart disease, Diabetes, Hypertension Past Medical History Reviewed: Reviewed - No Changes ROS - Limitations ROS Limitations: No Limitations Constitution: REPORTS: Denies Symptoms Cardiovascular: REPORTS: Denies Cardiac Symptoms Respiratory: REPORTS: Denies Resp Symptoms Lower Ext Complaint Exam - General Appearance General Appearance: POSITIVE: Alert - Extremities Lower Extremity: POSITIVE: Other (Patient has pain with strain of her gastrocnemius as well as some pain with forcefully moving her Achilles tendon. She has tenderness about the anterior tibial plateau with some palpation there as well. No discoloration or swelling or no evidence of any sort of blood clot or other.) Lower Ext Complaint Progress - Results Reviewed by me Xrays/CTs/US Reviewed by me: Yes Radiology Findings: I do not see any obvious fracture or malalignment. - Patient's Progress MDM / ED Course: Patient shows no obvious bony abnormality she likely has sustained a substantial gastrocnemius sprain or tear. The anterior tibia and tibial plateau are little tender for her as well but I'll see clear reason for this. I 've asked her to crutch for couple of days to use a rigid boot as to rest her gastroc and to monitor her symptoms closely if they are not readily improving over the next few days she needs to get in and see orthopedics in the near future. Patient Care Time - Estimated PCT Patient Care Time (In Minutes): 35 Vital Signs - VS Reviewed Vital Signs Reviewed: Yes (all benign) Discharge Clinical Impression: Muscle strain, Leg pain, left Discharge Disposition: Discharged to Home Condition: Stable Patient Instructions Given at Discharge: Leg Sprain (ED) Additional Instructions: Crutch as needed Anti-inflammatories and Tylenol as needed Walking boot as needed Follow-up with orthopedics in the next 3-5 days if not significantly improved Turn here to the emergency department with any substantial worsening or other concerns or complaints Follow Up With: HIEU ORTEGA [Primary Care Provider] -
[2016-10-16 13:38] VITALS: RESP 18; TEMP 96.7
--- NOTE | 2016-10-16 14:16 | DI ---
XR TIB/FIB 2VW,10/16/2016 11:02 AM: Clinical History: Fall and left leg pain. Previous Exam: None at this facility. Findings: 3 views of the left lower leg demonstrate anatomic alignment without fractures. The surrounding soft tissues are unremarkable. Impression: No fractures.
== END 2016-10-16 12:15 | disposition home or self-care (01) ==
LOC: ER 10:43
DX: S86.912A Strain of unspecified muscle(s) and tendon(s) at lower leg level, left leg, initial encounter (principal); M79.605 Pain in left leg; W17.89XA Other fall from one level to another, initial encounter
CPT/HCPCS: 73590; 99282

== ENCOUNTER → 2016-10-21 | Outpatient (CLI) | payer BC, OTHER ==
[2016-10-21 08:38] LABS: BLOOD UREA NITROGEN 12 mg/dL (7-22); BUN/CREATININE RATIO 13.33 (6-20); CALCIUM 9.1 mg/dL (8.7-10.7); EST GLOMERULAR FILTRATION > 60 (>60 ml/min/1.73m(2)); PHOSPHORUS 3.5 mg/dl (2.4-4.3); SERUM ALBUMIN 4.1 g/dL (3.5-4.8)
[2016-10-21 08:40] LABS: MEAN CORPUSCULAR VOLUME 82.8 FL (81-99); RED BLOOD COUNT 4.59 10^6/uL (4.20-5.40)
[2016-10-21 08:41] LABS: MEAN CORPUSCULAR HEMOGLOBIN 26.1 PG (27-31); MEAN CORPUSCULAR HGB CONC 31.6 g/dL (33-37); MEAN PLATELET VOLUME 11.3 FL (7.4-12.2)
== END ==
LOC: LAB 08:01
PROVIDERS: ATTEND Internal Medicine Nephrology
DX: Z94.0 Kidney transplant status (principal)
CPT/HCPCS: 36415; 80069; 80197; 85027

== ENCOUNTER → 2016-10-29 | Outpatient (CLI) | payer BC, OTHER ==
[2016-10-29 15:42] LABS: BILIRUBIN,URINE NEGATIVE (NEG); CLARITY,URINE CLEAR (CLEAR); COLOR,URINE YELLOW; GLUCOSE, URINE (UA) NEGATIVE (NEG); NITRATE,URINE NEGATIVE (NEG); OCCULT BLOOD,URINE NEGATIVE (NEG); PROTEIN,URINE NEGATIVE (NEG); UROBILINOGEN,URINE 0.2 mg/dL (0.2)
[2016-10-29 15:46] LABS: SQUAMOUS EPITHELIAL CELL,UR FEW; URINE SAMPLE TYPE VOIDED SPECIMEN
== END ==
LOC: MOB LAB 14:30
DX: T86.10 Unspecified complication of kidney transplant (principal)
CPT/HCPCS: 81001; 87088

== ENCOUNTER 2016-11-03 09:00 | Emergency (ER) | payer BC, OTHER ==
[2016-11-03 09:43] VITALS: RESP 16; TEMP 97.2
--- NOTE | 2016-11-03 09:45 | PDOC ---
Sore Throat/Dental Pain HPI - General Chief Complaint: Sore Throat Stated Complaint: SORE THROAT Date Seen by Provider: 11/03/16 Time Seen by Provider: 09:20 Source: POSITIVE: Patient Exam Limitations: POSITIVE: No limitations Nurse's Notes Reviewed & Considered: Yes - History of Present Illness Initial Comments: The patient is a 26-year-old female who presents to the emergency department with complaints of sore throat. She states that on October 22 she was seen in the clinic with complaints of sore throat, sinus congestion and cough. She had a rapid strep test done that was positive. She was treated with a ten-day course of amoxicillin. She states that her symptoms really never did improve significantly. She continues to have sore throat as well as drainage in the back of her throat, sinus congestion and some cough. Her cough is dry. She denies any fever or increased shortness of breath. She does have some sinus pressure as well. In addition she has some pain in her left ear which seems to be getting worse over the past couple of days. - Patient Home Medications Home Medications: Home Medications Aspirin [Aspir-Low] 81 mg PO DAILY 10/25/13 Biotin [Meribin] 1 tab PO QD #30 cap 05/03/15 Multivitamin with Minerals [Hair, Skin and Nails] 1 tab PO QD #30 tab 05/03/15 Rosuvastatin Calcium [Crestor] 1 tab PO QD #30 tab 05/03/15 Butalb/Acetaminophen/Caffeine [Fioricet 50-325-40 mg Tablet] 1 each PO Q6H PRN 11/04/15 Tacrolimus Anhydrous [Tacrolimus] 1 - 4 cap PO BID #240 cap 04/29/16 Midodrine HCl 2 tab PO BID #120 07/05/16 Sodium Bicarbonate 2 tab PO BID #120 07/05/16 Prednisone 1 - 2 tab PO QD #60 tab 07/08/16 Trazodone HCl 1 tab PO QHS #30 tab 07/11/16 Metoclopramide HCl 2 tab PO BID #120 tab 09/25/16 Sertraline HCl 1 tab PO QD #30 tab 10/09/16 Pantoprazole Sodium [Protonix] 1 tab PO QD #90 tab 10/14/16 Mycophenolate Sodium [Myfortic] 1 - 2 tab PO BID #120 tab 10/29/16 Fludrocortisone Acetate 1 tab PO BID #60 tab 10/30/16 Potassium Chloride 1 tab PO QD #30 tab 10/30/16 Cefdinir Cap [Omnicef Cap] 300 mg PO BID #20 capsule 11/03/16 Fludrocortisone Acetate [Florinef Acetate] 0.1 mg PO DAILY 11/03/16 Potassium Chloride [K-Dur] 20 meq .ROUTE DAILY 11/03/16 - Patient Allergies Allergies/Adverse Reactions: Allergies Allergy/AdvReac Type Severity Reaction Status Date / Time Rruzuko-Iso-Vhv Reductase AdvReac Mild SWELLING Verified 11/03/16 09:22 Inhibitor ibuprofen AdvReac HAS RENAL Verified 11/03/16 09:22 FAILURE Past Medical History - heen HEENT History: Other (please comment) Additional HEENT History: wears glasses Cardiovascular History: Hypertension, CHF, Previous [place], DVTs, Hyperlipidemia, Other (please comment) Additional Cardiovasular History: HEART CATH X 2 WITH STENTS X2 Respiratory History: Denies History Gastrointestinal History: Other (please comment) Additional Gastrointestinal History: APPY Genitourinary History: Renal Failure Additional Genitourinary History: With in 2012; kidney transplant Endocrine History: Type 1 Diabetes Additional Endocrine History: hx of IDDM, no longer diabetic since transplant. 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 Psychiatric History: Anxiety Disorders, Depression Additional Psychiatric History: Takes Zoloft for anxiety History of Sexually Transmitted Diseases: No Cancer History: Denies History History of MDRO: No History of Other Communicable Diseases: No Alcohol Use: None Substance Use Type: None Previous Surgical History: Yes Type / Date of Surgery: C SECTION X2, APPY, TUBAL LIG, cataracts, HEART CATHS WITH STENTS X 2. kidney/pancreas transplant 03/14/2015 Anesthesia Reactions: No Malignant Hyperthermia: No Significant Family History: Heart disease, Diabetes, Hypertension Past Medical History Reviewed: Reviewed - No Changes ROS - Limitations ROS Limitations: No Limitations Constitution: DENIES: Fever Cardiovascular: REPORTS: Denies Cardiac Symptoms Respiratory: REPORTS: Cough Non Productive. DENIES: Shortness Of Breath Neurological: REPORTS: Denies Neuro Symptoms Gastrointestinal: REPORTS: Denies GI Symptoms Sore Throat/Dental Pain Exam - General Appearance General Appearance: REPORTS: Alert, Cooperative, No Acute Distress - HEENT Head / Face: POSITIVE: No Facial Swelling Eyes: POSITIVE: Inspection Normal Ears: POSITIVE: Other (Left TM is somewhat dull and there does appear to be some fluid in the middle ear, right TM is clear) Nose: POSITIVE: Inspection Normal Oropharynx: POSITIVE: Other (She does have some erythema in the posterior oropharynx without any obvious exudate) Neck: POSITIVE: Supple. NEGATIVE: Non Tender, Lymphadenopathy - Respiratory Respiratory: REPORTS: No Respiratory Distress, Breath Sounds Normal - Cardiovascular Cardiovascular: REPORTS: Regular Rate and Rhythm, Heart Sounds Normal Sore Throat/Dental Progress - Patient's Progress MDM / ED Course: Her rapid strep is negative today. She did have a positive test on October 22. Her current symptoms seem most consistent with a sinus infection. The patient is immune compromised on multiple antirejection medications. Decision was made to start her on Omnicef 300 mg twice a day for 10 days for treatment of a sinus infection. She is advised return to the emergency room if she develops any worsening or change in symptoms. She will follow-up with primary care if no improvement in 3-5 days. - Consult Counseled: POSITIVE: Patient, RE: Lab Results, RE: DX, RE: Need for F/U Patient Care Time - Estimated PCT Patient Care Time (In Minutes): 10 Vital Signs - VS Reviewed Vital Signs Reviewed: Yes Discharge Clinical Impression: Sinusitis Discharge Disposition: Discharged to Home Condition: Fair Prescriptions / Orders: Cefdinir Cap [Omnicef Cap] 300 mg PO BID #20 capsule Patient Instructions Given at Discharge: Sinusitis (ED) Additional Instructions: Start Omnicef 300 mg twice a day for 10 days. Push fluids. Continue Tylenol as needed for pain. Return to the emergency room if increased pain, dehydration , any worsening or change in symptoms. Follow-up with primary care if no improvement in 3-5 days. Follow Up With: HIEU ORTEGA [Primary Care Provider] -
== END 2016-11-03 09:31 | disposition home or self-care (01) ==
LOC: ER 09:00
DX: J01.90 Acute sinusitis, unspecified (principal); R09.81 Nasal congestion; R05 Cough; H92.02 Otalgia, left ear; J02.9 Acute pharyngitis, unspecified
CPT/HCPCS: 87802; 99282

== ENCOUNTER → 2016-11-04 | Outpatient (CLI) | payer BC, OTHER ==
[2016-11-04 09:41] LABS: BLOOD UREA NITROGEN 23 mg/dL (7-22); BUN/CREATININE RATIO 25.55 (6-20); CALCIUM 9.4 mg/dL (8.7-10.7); EST GLOMERULAR FILTRATION > 60 (>60 ml/min/1.73m(2))
== END ==
LOC: LAB 08:42
PROVIDERS: ATTEND Internal Medicine Nephrology
DX: R94.6 Abnormal results of thyroid function studies (principal); E55.9 Vitamin D deficiency, unspecified; Z94.0 Kidney transplant status
CPT/HCPCS: 36415; 80069; 80197; 82306; 84443

== ENCOUNTER 2016-11-06 07:50 | Emergency (ER) | payer BC, OTHER ==
[2016-11-06 08:27] LABS: BASOPHILS # (AUTO) 0.05 10*3/UL; BASOPHILS % (AUTO) 0.6 % (0-1); EOSINOPHILS # (AUTO) 0.04 10*3/UL; EOSINOPHILS % (AUTO) 0.5 % (0-8); HEMATOCRIT 39.2 % (37.0-47.0); HEMOGLOBIN 12.3 g/dL (12.0-16.0); LYMPHOCYTES # (AUTO) 1.18 10*3/uL; MEAN CORPUSCULAR HEMOGLOBIN 25.4 PG (27-31); MEAN CORPUSCULAR HGB CONC 31.4 g/dL (33-37); MEAN PLATELET VOLUME 10.7 FL (7.4-12.2); MONOCYTES % (AUTO) 10.4 % (5-15); NEUTROPHILS # (AUTO) 6.46 10*3/UL; NEUTROPHILS % (AUTO) 74.7 % (50-80); RED BLOOD COUNT 4.84 10^6/uL (4.20-5.40)
[2016-11-06 08:29] LABS: PLATELET MORPHOLOGY COMMENT NORMAL MORPHOLOGY (NORM); RBC MORPHOLOGY COMMENT NORMAL MORPHOLOGY (NORM); WBC MORPHOLOGY COMMENT NORMAL MORPHOLOGY (NORM)
--- NOTE | 2016-11-06 08:29 | PDOC ---
Sore Throat/Dental Pain HPI - General Chief Complaint: Sore Throat Stated Complaint: strep throat not getting better Date Seen by Provider: 11/06/16 Time Seen by Provider: 08:10 Source: POSITIVE: Patient Exam Limitations: POSITIVE: No limitations Nurse's Notes Reviewed & Considered: Yes - History of Present Illness Initial Comments: The patient is a 26-year-old female who presents to the emergency department with continued sore throat and left ear pain. Symptoms developed earlier in the month and she was seen initially at urgent care and tested positive for strep throat. She was treated initially with amoxicillin however had no improvement. She presented here to the emergency room 3 days ago with continued sore throat. She also reported some sinus drainage at that time. Her strep test was negative. She was started on Omnicef for treatment of presumed sinusitis with postnasal drainage. She states that her symptoms have not improved since starting the antibiotics. She was seen yesterday at the urgent care clinic where she was advised to start on a nasal steroid and throat culture was obtained. She states that she is no better today. She has pain in her throat making it difficult for her to swallow. She also has some pain in her left ear. She denies fevers or chills. She does not notice any significant sinus drainage currently. She has some nonproductive cough. - Patient Home Medications Home Medications: Home Medications Aspirin [Aspir-Low] 81 mg PO DAILY 10/25/13 Biotin [Meribin] 1 tab PO QD #30 cap 05/03/15 Multivitamin with Minerals [Hair, Skin and Nails] 1 tab PO QD #30 tab 05/03/15 Rosuvastatin Calcium [Crestor] 1 tab PO QD #30 tab 05/03/15 Butalb/Acetaminophen/Caffeine [Fioricet 50-325-40 mg Tablet] 1 each PO Q6H PRN 11/04/15 Tacrolimus Anhydrous [Tacrolimus] 1 - 4 cap PO BID #240 cap 04/29/16 Midodrine HCl 2 tab PO BID #120 07/05/16 Sodium Bicarbonate 2 tab PO BID #120 07/05/16 Prednisone 1 - 2 tab PO QD #60 tab 07/08/16 Trazodone HCl 1 tab PO QHS #30 tab 07/11/16 Metoclopramide HCl 2 tab PO BID #120 tab 09/25/16 Sertraline HCl 1 tab PO QD #30 tab 10/09/16 Pantoprazole Sodium [Protonix] 1 tab PO QD #90 tab 10/14/16 Mycophenolate Sodium [Myfortic] 1 - 2 tab PO BID #120 tab 10/29/16 Fludrocortisone Acetate 1 tab PO BID #60 tab 10/30/16 Cefdinir Cap [Omnicef Cap] 300 mg PO BID #20 capsule 11/03/16 Potassium Chloride [K-Dur] 20 meq .ROUTE DAILY 11/03/16 - Patient Allergies Allergies/Adverse Reactions: Allergies Allergy/AdvReac Type Severity Reaction Status Date / Time Swzvstv-[id number]-Ecs Reductase AdvReac Mild SWELLING Verified 11/06/16 08:03 Inhibitor ibuprofen AdvReac HAS RENAL Verified 11/06/16 08:03 FAILURE Past Medical History - heen HEENT History: Other (please comment) Additional HEENT History: wears glasses Cardiovascular History: Hypertension, CHF, Previous CO, DVTs, Hyperlipidemia, Other (please comment) Additional Cardiovasular History: HEART CATH X 2 WITH STENTS X2 Respiratory History: Denies History Gastrointestinal History: Other (please comment) Additional Gastrointestinal History: APPY Genitourinary History: Renal Failure Additional Genitourinary History: With in 2012; kidney transplant Endocrine History: Type 1 Diabetes Additional Endocrine History: hx of IDDM, no longer diabetic since transplant. 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 Psychiatric History: Anxiety Disorders, Depression Additional Psychiatric History: Takes Zoloft for anxiety History of Sexually Transmitted Diseases: No Cancer History: Denies History History of MDRO: No History of Other Communicable Diseases: No Alcohol Use: None Substance Use Type: None Previous Surgical History: Yes Type / Date of Surgery: C SECTION X2, APPY, TUBAL LIG, cataracts, HEART CATHS WITH STENTS X 2. kidney/pancreas transplant 03/14/2015 Anesthesia Reactions: No Malignant Hyperthermia: No Significant Family History: Heart disease, Diabetes, Hypertension Past Medical History Reviewed: Reviewed - No Changes ROS - Limitations ROS Limitations: No Limitations Constitution: DENIES: Chills, Fever Cardiovascular: REPORTS: Denies Cardiac Symptoms Respiratory: REPORTS: Denies Resp Symptoms Neurological: REPORTS: Denies Neuro Symptoms Gastrointestinal: REPORTS: Denies GI Symptoms Musculoskeletal: REPORTS: Denies MS Symptoms Eyes: REPORTS: Denies Symptoms ENT: REPORTS: Earache (Left ear pain), Sore Throat, Trouble Swallowing. DENIES : Nasal Drainage Skin: DENIES: Rash Sore Throat/Dental Pain Exam - General Appearance General Appearance: REPORTS: Alert, Cooperative, No Acute Distress - HEENT Head / Face: POSITIVE: No Facial Swelling Eyes: POSITIVE: Inspection Normal Ears: POSITIVE: Ears Normal Inspection, TM Normal Inspection (Maybe a slight amount of fluid in the left inner ear however there is no erythema or swelling) Nose: POSITIVE: Inspection Normal Oropharynx: POSITIVE: External Inspection Nml, Pharynx Inspect. Nml (She has some mild posterior pharynx erythema, no visible swelling), Airway Intact, Voice Normal, Moist Mucous Membranes Neck: POSITIVE: Supple, Other (No palpable lymphadenopathy or swelling on examination of the neck) - Respiratory Respiratory: REPORTS: No Respiratory Distress, Breath Sounds Normal - Cardiovascular Cardiovascular: REPORTS: Regular Rate and Rhythm, Heart Sounds Normal - Abdomen Abdomen: Soft: (All Quadrants), Denies Tenderness: (All Quadrants) - Extremities Extremity: Normal ROM: (All Extremities), Normal Inspection: (All Extremities) - Skin Skin: REPORTS: Intact, No Rash - Neurological / Psychological Neurological: 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, Motor Normal, Sensation Normal Sore Throat/Dental Progress - Results Reviewed by me Lab Results Reviewed: Yes Lab Results:: Laboratory Results 11/06/16 Range/Units 08:22 WBC 8.65 (4.8-10.8) 10^3/uL RBC 4.84 (4.20-5.40) 10^6/uL Hgb 12.3 (12.0-16.0) g/dL Hct 39.2 (37.0-47.0) % MCV 81.0 (81-99) FL MCH 25.4 L (27-31) PG MCHC 31.4 L (33-37) g/dL RDW Std Deviation 43.0 (39-50) fL RDW Coeff of Martha 14.8 H (11.5-14.5) % Plt Count 346 (140-350) 10*3/uL MPV 10.7 (7.4-12.2) FL Immature Gran % (Auto) 0.2 (0-5) % Neut % (Auto) 74.7 (50-80) % Lymph % (Auto) 13.6 (10-50) % [place] % (Auto) 10.4 (5-15) % Eos % (Auto) 0.5 (0-8) % Baso % (Auto) 0.6 (0-1) % Immature Gran # (Auto) 0.02 10*3/UL Neut # (Auto) 6.46 10*3/UL Lymph # (Auto) 1.18 10*3/uL [place] # (Auto) 0.90 H (0.3-0.8) 10*3/UL Eos # (Auto) 0.04 10*3/UL Baso # (Auto) 0.05 10*3/UL WBC Morphology Comment Normal morphology (NORM) Plt Morphology Comment Normal morphology (NORM) RBC Morph Comment Normal morphology (NORM) Sodium 137 (135-145) meq/L Potassium 3.7 L (3.8-5.2) meq/L Chloride 104 (98-112) meq/L Carbon Dioxide 19 L (23-33) meq/L Anion Gap 14 (5-20) BUN 15 (7-22) mg/dL Creatinine 0.8 (0.50-1.20) mg/dL Estimated GFR > 60 (>60 ml/min/1.73m(2)) BUN/Creatinine Ratio 18.75 (6-20) Glucose 87 (78-110) mg/dL Calculated Osmolality 283.0 (267-292) mOsm/kg Calcium 10.0 (8.7-10.7) mg/dL Total Bilirubin 0.6 (0.3-1.2) mg/dL AST 43 H (8-39) IU/L ALT 33 (9-52) IU/L Alkaline Phosphatase 65 (38-126) IU/L C-Reactive Protein 1.2 H (0.0-0.9) mg/dL Total Protein 8.1 H (6.1-8.0) g/dL Albumin 4.5 (3.5-4.8) g/dL Globulin 3.6 (2.50-4.10) g/dL Albumin/Globulin Ratio 1.20 L (1.3-2.0) mg/g Monoscreen Negative (NEG) - Patient's Progress MDM / ED Course: [place] screen neg, other blood work unremarkable. No clinical evidence of abscess or thrush. Recommend continuation of omnicef, benadryl liquid as needed for sore throat, ENT follow-up. - Consult Counseled: POSITIVE: Patient, RE: Lab Results, RE: DX, RE: Need for F/U Patient Care Time - Estimated PCT Patient Care Time (In Minutes): 20 Vital Signs - Recent Vital Signs Vital Signs: Vital Signs (Last 8 hours) Temp Pulse Resp BP Pulse Ox 11/06/16 08:00 97.3 F 95 16 126/88 100 - VS Reviewed Vital Signs Reviewed: Yes Discharge Clinical Impression: Sore throat symptom, Sinusitis Discharge Disposition: Discharged to Home Condition: Stable Additional Instructions: Continue omnicef as prescribed. Try benadryl liquid 2 teaspoons every 4 hours as needed for sore throat. Recommend f/u with ENT in [place]--[place] [facility]- -[phone]. Return to ER if worsening or change in symptoms. Follow Up With: HIEU ORTEGA [Primary Care Provider] -
[2016-11-06 08:31] VITALS: RESP 16; TEMP 97.3
[2016-11-06 09:15] LABS: BLOOD UREA NITROGEN 15 mg/dL (7-22); BUN/CREATININE RATIO 18.75 (6-20); C-REACTIVE PROTEIN 1.2 mg/dL (0.0-0.9); EST GLOMERULAR FILTRATION > 60 (>60 ml/min/1.73m(2)); SERUM ALBUMIN 4.5 g/dL (3.5-4.8)
== END 2016-11-06 09:34 | disposition home or self-care (01) ==
LOC: ER 07:50
DX: J02.9 Acute pharyngitis, unspecified (principal); J01.90 Acute sinusitis, unspecified; H92.02 Otalgia, left ear; R05 Cough
CPT/HCPCS: 80053; 85025; 86140; 86308; 99282

== ENCOUNTER → 2016-11-14 | Outpatient (CLI) | payer BC, OTHER ==
[2016-11-14 08:45] LABS: HEMATOCRIT 39.3 % (37.0-47.0); MEAN CORPUSCULAR HEMOGLOBIN 24.8 PG (27-31); MEAN CORPUSCULAR HGB CONC 30.5 g/dL (33-37); MEAN CORPUSCULAR VOLUME 81.4 FL (81-99); MEAN PLATELET VOLUME 10.1 FL (7.4-12.2); RED BLOOD COUNT 4.83 10^6/uL (4.20-5.40)
[2016-11-14 09:10] LABS: BLOOD UREA NITROGEN 15 mg/dL (7-22); BUN/CREATININE RATIO 18.75 (6-20); EST GLOMERULAR FILTRATION > 60 (>60 ml/min/1.73m(2)); SERUM ALBUMIN 4.4 g/dL (3.5-4.8)
== END ==
LOC: LAB 08:24
PROVIDERS: ATTEND Internal Medicine Nephrology
DX: Z94.0 Kidney transplant status (principal)
CPT/HCPCS: 36415; 80069; 80197; 85027